=== PATIENT | female | born 1975 | race Caucasian/White ===

== ENCOUNTER 2020-07-15 09:25 | Outpatient (REF) | payer MEDICAID, SELFPAY ==
[2020-07-15 11:52] LABS: Anion Gap 12 (12-20); Blood Urea Nitrogen 12 mg/dL (9-16); Calcium 8.8 mg/dL (8.4-10.2); Carbon Dioxide 24 mmol/L (22-29); Chloride 107 mmol/L (96-108); Cholesterol 273 mg/dL; Estimated Glomerular Filt Rate > 60; Glucose Fasting 78 mg/dL (60-99); HDL Cholesterol 43 mg/dL; LDL Cholesterol Calculated 198 mg/dl; Potassium 3.5 mmol/l (3.3-5.1); Sodium 139 mmol/L (135-145); Triglycerides 163 mg/dL
[2020-07-15 11:57] LABS: Alanine Aminotransferase 9 U/L (0-31); Albumin Level 3.9 g/dL (3.5-5.0); Alkaline Phosphatase 61 U/L (39-117); Aspartate Amino Transferase 12 U/L (5-31); Bilirubin Direct < 0.2 mg/dL (0.0-0.5); Bilirubin Total 0.4 mg/dL (0.0-1.0); Cholesterol 270 mg/dL; HDL Cholesterol 43 mg/dL; LDL Cholesterol Calculated 195 mg/dl; Total Protein 6.6 g/dL (6.5-8.0); Triglycerides 161 mg/dL
== END 2020-07-15 09:26 | disposition home or self-care (01) ==
LOC: HO.HMGCLDS 09:25
PROVIDERS: PCP Internal Medicine; Visit Provider Internal Medicine
DX: E78.9 Disorder of lipoprotein metabolism, unspecified (principal); G25.81 Restless legs syndrome; G43.109 Migraine with aura, not intractable, without status migrainosus; G44.89 Other headache syndrome
CPT/HCPCS: 36415; 80048; 80061; 80076

== ENCOUNTER 2020-10-13 01:16 | Emergency (ER) | payer MEDICAID, SELFPAY ==
[2020-10-13 01:21] VITALS: BP 143/78; PULSE 108; RESP 16; TEMP 36.4; O2SAT 98; BMI 27.4
[2020-10-13 01:38] VITALS: BP 143/78; PULSE 108; RESP 16; TEMP 36.4; O2SAT 98
--- NOTE | 2020-10-13 01:40 | ED.PSYCH ---
HPI - Psych General Chief Complaint: Psychiatric Symptoms Stated Complaint: crisis/SI Time Seen by Provider: 10/13/20 01:37 Source: patient Mode of arrival: EMS History of Present Illness HPI Narrative: 44-year-old female brought in by EMS after boyfriend stated that patient posted a fair will note online prompting him to call EMS. Patient adamantly denies having any suicidal ideation and states that she has not posted anything online. In addition, she denies any history of depression, suicidal ideation, suicide attempt or admissions for these conditions. Otherwise, patient has no acute complaints other than wanting to go home. Related Data Previous Rx's Medication Instructions Recorded simvastatin 40 mg tablet 40 mg PO BEDTIME 90 Days #90 tab 07/17/20 ropinirole 1 mg tablet 1 mg PO BEDTIME #90 tab 09/12/20 Allergies Allergy/AdvReac Type Severity Reaction Status Date / Time acetaminophen [Percocet] Allergy Unknown unknown Verified 07/16/20 13:36 oxycodone Allergy Unknown unknown Verified 07/16/20 13:36 Review of Systems Review of Systems: Pertinent positives and negatives as stated in HPI 10 point review of systems is otherwise negative. PMFSH Past Medical History Source: nursing notes reviewed Medical History Lipid disorder Migraine headache with aura Restless leg syndrome Surgical History No pertinent past surgical history Social History Social History Advance Directives: No Physical Exam Vital Signs: Vital Signs: Last Vital Signs Temp 97.6 F 10/13/20 01:38 Pulse 108 H 10/13/20 01:38 Resp 16 10/13/20 01:38 BP 143/78 H 10/13/20 01:38 Pulse Ox 98 10/13/20 01:38 Body Mass Index 27.4 VITAL SIGNS: Reviewed. GENERAL: Well developed, well nourished, mild distress. HEAD: Normocephalic/atraumatic, EYES: PERRLA, EOMI OROPHARYNX: no oral lesions noted, posterior pharynx clear NECK: Supple, no adenopathy LUNGS: Normal breath sounds. SpO2<98> CARDIOVASCULAR: Regular rate and rhythm without noted murmurs ABDOMEN: Soft, non-tender, non-distended with bowel sounds.. NEUROLOGIC: Alert and oriented x 4. PSYCH: Tearful, normal affect, logical thought process Course Course Course Narrative: This is a 44-year-old female with history and clinical presentation suggestive of possible misinterpretation of circumstances. Patient exhibits logical thought process and does not appear to be depressed at baseline and currently denying any SI/HI. She is otherwise medically cleared for further evaluation by the CARE team/behavioral team. MDM - Psych Lab Data Labs: Lab Results 10/13/20 10/13/20 10/13/20 Range/Units 01:47 01:47 01:47 Urine Color YELLOW Urine Appearance CLEAR Urine pH 6.0 (5.0-8.0) Ur Specific [place] >= 1.030 H (1.005-1.025) Urine Protein NEG (NEG-TRACE) MG/DL Urine Glucose (UA) NEG (NEG) MG/DL Urine Ketones NEG (NEG) MG/DL Urine Blood 2+ H (NEG) Urine Nitrite NEG (NEG) Ur Leukocyte Esterase NEG (NEG) Urine RBC 1-4 (0) /HPF Urine WBC 10-14 H (0-4) /HPF Ur Squamous Epith Cells TRACE /LPF Urine Bacteria NONE /LPF Urine Mucus 2+ /LPF Urine Test NEGATIVE (NEGATIVE) Urine Opiates Screen Not Detected (Not Detect) Ur Barbiturates Screen Not Detected (Not Detect) Ur Phencyclidine Scrn Not Detected (Not Detect) Ur Amphetamines Screen Not Detected (Not Detect) U Benzodiazepines Scrn Not Detected (Not Detect) Urine Cocaine Screen Not Detected (Not Detect) U Marijuana (THC) Screen Not Detected (Not Detect) COVID-19 (DU) (Negative) COVID-19 Clin Com 10/13/20 Range/Units 01:47 Urine Color Urine Appearance Urine pH (5.0-8.0) Ur Specific [place] (1.005-1.025) Urine Protein (NEG-TRACE) MG/DL Urine Glucose (UA) (NEG) MG/DL Urine Ketones (NEG) MG/DL Urine Blood (NEG) Urine Nitrite (NEG) Ur Leukocyte Esterase (NEG) Urine RBC (0) /HPF Urine WBC (0-4) /HPF Ur Squamous Epith Cells /LPF Urine Bacteria /LPF Urine Mucus /LPF Urine Test (NEGATIVE) Urine Opiates Screen (Not Detect) Ur Barbiturates Screen (Not Detect) Ur Phencyclidine Scrn (Not Detect) Ur Amphetamines Screen (Not Detect) U Benzodiazepines Scrn (Not Detect) Urine Cocaine Screen (Not Detect) U Marijuana (THC) Screen (Not Detect) COVID-19 (DU) Negative (Negative) COVID-19 Clin Com See Note Discharge Plan Discharge Prescriptions: No Action ropinirole 1 mg tablet 1 mg PO BEDTIME Qty: 90 RF: 1 simvastatin 40 mg tablet 40 mg PO BEDTIME 90 Days Qty: 90 RF: 1
[2020-10-13 02:15] LABS: Glucose Urine UA NEG (NEG); Leukocyte Esterase Urine NEG (NEG); Nitrite Urine NEG (NEG); Specific Gravity - Urine >= 1.030 (1.005-1.025); Urine Blood 2+ (NEG); Urine Ketones NEG (NEG); Urine Protein NEG (NEG-TRACE)
[2020-10-13 02:22] LABS: Appearance Urine CLEAR; Color Urine YELLOW
[2020-10-13 02:24] LABS: COVID-19 Test Negative (Negative)
[2020-10-13 02:25] LABS: Amphetamine Screen Urine Not Detected (Not Detect); Barbiturates, Urine Not Detected (Not Detect); Benzodiazepines Screen Urine Not Detected (Not Detect); Cannabinoid Screen Urine Not Detected (Not Detect); Cocaine Screen Urine Not Detected (Not Detect); Opiate Screen Urine Not Detected (Not Detect); Phencyclidine Screen Urine Not Detected (Not Detect)
[2020-10-13 02:59] LABS: UACC CULT YES
[2020-10-13 03:00] LABS: Mucus Urine 2+ /LPF; Squamous Epithelial Cell Urine TRACE /LPF; UPreg QC Valid YES; Urine Pregnancy NEGATIVE (NEGATIVE)
--- NOTE | 2020-10-13 07:37 | PC.NURSE ---
Report received from KIRAN Murphy. Pt awake, states she is very angry, tearful- reports that she was told by police that ED evaluation would take '2 hours.' Pt denies SI currently, states 'I said something stupid' but that she plans to go to work tomorrow. Discussed crisis process w/ pt.
--- NOTE | 2020-10-13 08:55 | PC.NURSE ---
Patient resting in bed. Calm and cooperative.
[2020-10-13 09:17] VITALS: BP 148/89; PULSE 82; RESP 17; TEMP 36.5; O2SAT 100
--- NOTE | 2020-10-13 10:42 | PC.NURSE ---
Patient resting in bed. No complaints offered at this time.
--- NOTE | 2020-10-13 10:45 | PC.NURSE ---
Pt resting, resp unlabored. Pt seen by CARE team and by provider.
--- NOTE | 2020-10-13 11:12 | PC.NURSE ---
Pt given discharge instructions, verbalized understanding. Pt continues to deny SI, states she is safe to be discharged. Denies any concerns. Will call taxi for transportation.
--- NOTE | 2020-10-13 12:10 | MHC.CARE ---
CARE team was requested to see pt per POD this am after speaking with pts provider. Pt was referred to [facility] last night due to suspected SI upon EMS arrival and due to [facility] staffing was not seen on overnight and per POD nurse Senait not able to send staff until 12n or after . CARE met w pt for screening based on pt and nurses request. Pt presented was awake, alert, orientedx4. Pt sat up in bed and with irritable tone asked to be discharged. Pt stated how she feels this was all wrong and against my will . Pt admitted to having argument the night prior with her BF of 4 months who was the reason police and EMS responded to pt and asked her to come to [facility]. Pt reported that she went out for a drink with a friend (who is male) which upset her BF and triggered the series of events that lead to her arrival. Pt stated the two argued and she made made statements in anger towards him and how he treats her overall. When asked why pts BF told police she was suicidal she feels he misused what she said. She admitted to taking a video of herself in her recant,for purposes of showing him where she was located and that she went to the [place] in order to get some space. Pt reported that she had spoken to her 19yro daughter 5 mins prior to the police arrival and she never said she was suicidal or depressed and never felt like ending her life at any point. She stated that her BF used this as a means to hurt her for being out with a male. Pt stated the police showed up and asked her to come to [facility] and she willing came thinking it would only be brief. Pt continues to deny suicidal ideation then and now. Pt denied prior SI hx or mental health dx or sxs. Pt is not taking medications aside from cholesterol meds. Pts plan is to return home and go back to work tomorrow. 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 Pt became tearful throughout this brief interview as she was feeling frustrated that she is in this situation when it should have never happened . Pt said she has friends and family who will support her if needed and she is aware of how to seek crisis if needed. Pt will see ED provider for final dispo.
== END 2020-10-13 11:14 | disposition home or self-care (01) ==
PROVIDERS: Emergency Provider Student in an Organized Health Care Education/Training Program; PCP Internal Medicine
DX: F32.9 Major depressive disorder, single episode, unspecified (principal); R45.851 Suicidal ideations; Z91.5 Personal history of self-harm; Z20.822 Contact with and (suspected) exposure to COVID-19; E78.5 Hyperlipidemia, unspecified
CPT/HCPCS: 36415; 80307; 81001; 81025; 87086; 87635; 99284; 99285

== ENCOUNTER 2020-10-14 11:38 | Outpatient (REF) | payer MEDICAID, SELFPAY ==
[2020-10-14 15:00] LABS: Alanine Aminotransferase 11 U/L (0-31); Albumin Level 4.1 g/dL (3.5-5.0); Alkaline Phosphatase 65 U/L (39-117); Aspartate Amino Transferase 14 U/L (5-31); Bilirubin Direct 0.2 mg/dL (0.0-0.5); Bilirubin Total 0.5 mg/dL (0.0-1.0); Cholesterol 181 mg/dL; HDL Cholesterol 49 mg/dL; LDL Cholesterol Calculated 111 mg/dl; Total Protein 6.9 g/dL (6.5-8.0); Triglycerides 108 mg/dL
== END 2020-10-14 11:39 | disposition home or self-care (01) ==
LOC: HO.HMGCLDS 11:38
PROVIDERS: PCP Internal Medicine; Visit Provider Internal Medicine
DX: E78.9 Disorder of lipoprotein metabolism, unspecified (principal)
CPT/HCPCS: 36415; 80061; 80076

== ENCOUNTER 2021-04-05 12:37 | Outpatient (REF) | payer MEDICAID, SELFPAY ==
--- NOTE | ~2021-04-05 | XR_ITS ---
EXAMINATION: XR KNEE, RIGHT CLINICAL INFORMATION: Right knee pain COMPARISON: None TECHNIQUE: Two views of the right knee. FINDINGS: Bones and soft tissues are normal. No fracture or joint effusion. Alignment is anatomic. Joint spaces are well maintained. No abnormal soft tissue calcification. XR/XR knee RT 2V IMPRESSION: Normal right knee.
--- NOTE | ~2021-04-05 | XR_ITS ---
EXAMINATION: XR LUMBOSACRAL SPINE CLINICAL INFORMATION: Pain COMPARISON: None TECHNIQUE: Three views of the lumbosacral spine. FINDINGS: There is grade 1 anterolisthesis at L5-S1. The vertebral body heights and intervertebral disc spaces are maintained. There is bilateral spondylolysis at L5. The paravertebral soft tissues are unremarkable. XR/XR lumbar spine 2-3V IMPRESSION: Bilateral spondylolysis at L5 with grade 1 anterolisthesis at L5-L1.
[2021-04-05 13:50] LABS: Alanine Aminotransferase 11 U/L (0-31); Alkaline Phosphatase 56 U/L (39-117); Anion Gap 10 (12-20); Aspartate Amino Transferase 14 U/L (5-31); Bilirubin Direct 0.2 mg/dL (0.0-0.5); Bilirubin Total 0.2 mg/dL (0.0-1.0); Blood Urea Nitrogen 10 mg/dL (9-16); Calcium 9.3 mg/dL (8.4-10.2); Carbon Dioxide 24 mmol/L (22-29); Chloride 109 mmol/L (96-108); Cholesterol 157 mg/dL; Estimated Glomerular Filt Rate > 60; Glucose Random 86 mg/dL (60-115); HDL Cholesterol 46 mg/dL; LDL Cholesterol Calculated 92 mg/dl; Potassium 4.3 mmol/L (3.3-5.1); Sodium 139 mmol/L (135-145); Total Protein 6.5 g/dL (6.5-8.0); Triglycerides 99 mg/dL
== END 2021-04-05 12:38 | disposition home or self-care (01) ==
LOC: HO.HMGCX 12:37
PROVIDERS: PCP Internal Medicine; Visit Provider Internal Medicine
DX: E78.9 Disorder of lipoprotein metabolism, unspecified (principal); G43.109 Migraine with aura, not intractable, without status migrainosus; G25.81 Restless legs syndrome; M25.561 Pain in right knee; M54.50 Low back pain, unspecified; M43.06 Spondylolysis, lumbar region
CPT/HCPCS: 36415; 72100; 73560; 80053; 80061; 82248

== ENCOUNTER → 2021-04-08 14:49 | Outpatient (BNVA) | payer MEDICAID, SELFPAY | PROVIDERS: PCP Internal Medicine; Visit Provider Nurse Practitioner Family | DX: M47.816 Spondylosis without myelopathy or radiculopathy, lumbar region (principal); M25.561 Pain in right knee | CPT/HCPCS: 99202 ==

== ENCOUNTER 2021-05-20 18:49 | Outpatient (REF) | payer OTHER, SELFPAY ==
--- NOTE | ~2021-05-20 | MR_ITS ---
EXAMINATION: MR LUMBAR SPINE WITHOUT CONTRAST CLINICAL INFORMATION: Spondylosis without myelopathy or radiculopathy. COMPARISON: None TECHNIQUE: MRI of the lumbar spine was obtained using routine sequences without contrast. FINDINGS: There is mild grade 1 anterolisthesis of L5 on S1 related to defects of the bilateral L5 pars interarticularis. There is mild retrolisthesis of L4 on L5. No significant disc height loss is seen. There is mild marrow edema at the anterior superior corner of L5. The distal spinal cord appears normal. The conus medullaris terminates normally at the L1 level. The visualized paraspinal muscles and intra-abdominal and pelvic contents are within normal limits. SPINAL LEVELS: L1-L2: No posterior disc abnormality. No spinal canal or neural foraminal stenosis. L2-L3: No posterior disc abnormality. No spinal canal or neural foraminal stenosis. L3-L4: No posterior disc abnormality. No spinal canal or neural foraminal stenosis. L4-L5: Disc bulging with shallow central protrusion and mild facet arthropathy. No spinal canal or neural foraminal stenosis. L5-S1: Grade 1 anterolisthesis related to pars defects. Disc bulging with facet arthropathy. Significant neural foraminal stenosis with compression of the bilateral exiting L5 nerve root. MR/MR lumbar spine wo con IMPRESSION: At L5-S1 there is grade 1 anterolisthesis related to bilateral L5 pars defects. Significant neural foraminal stenosis with compression of the exiting L5 nerve roots. At L4-L5 there is shallow central protrusion but no spinal canal or neural foraminal stenosis.
== END 2021-05-20 18:50 | disposition home or self-care (01) ==
LOC: HO.MRI 18:49
PROVIDERS: Visit Provider Nurse Practitioner Family
DX: M47.816 Spondylosis without myelopathy or radiculopathy, lumbar region (principal); M43.17 Spondylolisthesis, lumbosacral region
CPT/HCPCS: 72148

== ENCOUNTER → 2021-06-10 11:15 | Outpatient (BNVA) | payer OTHER, SELFPAY | PROVIDERS: PCP Internal Medicine; Visit Provider Nurse Practitioner Family ==

== ENCOUNTER 2021-06-24 16:50 | Outpatient (REF) | payer OTHER, SELFPAY ==
--- NOTE | ~2021-06-24 | XR_ITS ---
EXAMINATION: CR LUMBOSACRAL SPINE WITH OBLIQUES CLINICAL INFORMATION: Spondylolisthesis, lumbosacral region. COMPARISON: Lumbar spine films dated 04/05/2021. MRI scan of the lumbar spine dated 05/20/2021. TECHNIQUE: AP and lateral views of the lumbar spine. Lateral view of the lumbosacral junction. Lateral flexion-extension views of the lumbar spine. FINDINGS: Bilateral pars defects are seen at L5 with grade 1 anterolisthesis of L5 on S1, similar to the previous exam. Visualization is mildly limited due to overlapping structures and slight obliquity on the images. Upon flexion and extension, no significant instability is appreciated. Alignment of the lumbar spine otherwise unremarkable. Disc space height well maintained at all levels. Sacroiliac joints intact and unremarkable. XR/XR lumbar spine 6V w bending IMPRESSION: Bilateral L5 pars defects and associated Grade 1 anterolisthesis of L5 on S1 are similar to prior studies. No significant instability appreciated on flexion and extension, though evaluation is mildly limited.
== END 2021-06-24 16:51 | disposition home or self-care (01) ==
LOC: HO.XRAY 16:50
PROVIDERS: Visit Provider Nurse Practitioner Family
DX: M43.17 Spondylolisthesis, lumbosacral region (principal)
CPT/HCPCS: 72114

== ENCOUNTER 2021-08-26 06:08 | Outpatient (REF) | payer OTHER, SELFPAY ==
--- NOTE | ~2021-08-26 | FL_ITS ---
EXAMINATION: XR FLUOROSCOPY WITH IMAGES CLINICAL INFORMATION: M43.06 - Spondylolysis, lumbar region COMPARISON: Radiographs lumbar spine 06/24/2021 TECHNIQUE: Fluoroscopy performed by Dr. Mahesh Ballard. Fluoroscopy time: 0.6 minutes DAP: 6.59 Gycm2 Images: 2 FINDINGS: There are spinal needles overlying the bilateral outer L5 neural foramen. There is contrast seen in the respective nerve sheaths. Transforaminal epidural extension is present. No visible vascular communication. FL/FL guidance in treatment room IMPRESSION: Fluoroscopy for pain management procedures.
== END 2021-08-26 06:09 | disposition home or self-care (01) ==
LOC: HO.RADIR 06:08
PROVIDERS: Visit Provider Anesthesiology
DX: M43.06 Spondylolysis, lumbar region (principal); G25.81 Restless legs syndrome; E78.9 Disorder of lipoprotein metabolism, unspecified; F17.200 Nicotine dependence, unspecified, uncomplicated; Z88.6 Allergy status to analgesic agent
CPT/HCPCS: 64483; J3300; Q9967

== ENCOUNTER → 2021-09-30 12:50 | Outpatient (BNVA) | payer OTHER, SELFPAY | PROVIDERS: PCP Internal Medicine; Visit Provider Nurse Practitioner Family | DX: M43.06 Spondylolysis, lumbar region (principal); M47.816 Spondylosis without myelopathy or radiculopathy, lumbar region | CPT/HCPCS: 99212 ==

== ENCOUNTER 2021-10-06 15:06 | Outpatient (REF) | payer OTHER, SELFPAY ==
--- NOTE | 2021-10-06 16:04 | MHC.AU.ANR ---
Adult Audiological Evaluation Date of Visit: 10/06/21 Reason for Appointment: Audiological evaluation due to concern for decreased hearing. Yoly notes that her ears feel blocked and she is often asking people for repetition. She notes that her right ear is worse than her left. She feels her hearing has gradually been decreasing over the past couple years. She notes ringing and clicking sounds in her ears. Does patient feel they have a hearing loss?: Yes If Yes, Which Ear?: Right Ear When Was Hearing Difficulty First Noticed?: Couple years ago Has hearing been tested previously?: No Hearing Handicap Inventory: HHIE SCORE: 16 Based on HHIE score, patient has: Mild to moderate perceived hearing handicap Ear History: Family History of Hearing Loss?: Yes: grandmother Ear Infections in Childhood: Both Ears Bothersome Tinnitus/Ringing/Noises in Ears: Both Ears Blocked/Full Sensation in Ear(s): Both Ears Medical History: Medical History: Tobacco Use Medical History (Other): Seasonal allergies, injections in back for a fracture (08/26/21) Allergies: Oxycodone Medication List: Simvastatin, Ropinirole Otoscopy: Right Ear: Fluid behind tympanic membrane Left Ear: Tympanic membrane is retracted Tympanometry: Tympanometry performed due to: To assess integrity of the middle ear system Right Ear: Non-compliant Middle Ear System (Type B) Left Ear: Negative Middle Ear Pressure (Type C) Hearing Evaluation: Transducer(s) Used: Insert Earphones, Bone Conduction Method: Conventional Audiometry Stimuli Used: Pure Tones Right Ear: Description of Hearing: Mild conductive hearing loss from 250-500 Hz, rising to normal hearing (with a conductive overlay, 15-25 dBHL air-bone gaps) from 3960-9913 Hz, sloping to a mild conductive hearing loss from 1069-5869 Hz, and a moderately-severe hearing loss at 8000 Hz. Left Ear: Description of Hearing: Normal hearing from 250-6000 Hz (with a conductive overlay, 20 dBHL air-bone gaps from 7381-3532 Hz), sloping to a moderate hearing loss at 8000 Hz. Speech Recognition Threshold (SRT): Method Used: Monitored Live Voice Stimuli Used: Spondee Words Right Ear: 25 dBHL Left Ear: 20 dBHL Word Discrimination: Method: Recorded Lists Word Lists Used: NU-6 Right Ear: 88% at 65 dBHL Left Ear: 96% at 60 dBHL Recommendations: Audiological re-evaluation in one year. Recommend a referral to Ear, Nose, and Throat to address middle ear dysfunction and conductive hearing loss. Diagnosis: Primary Diagnosis: H90.0 Conductive Hearing Loss, Bilateral Secondary Diagnosis: H69.93 Unspecified Eustachian Tube Dysfunction, Bilateral Services Performed: Services Performed: Comprehensive Audiological Evaluation (CPT 76751) Tympanometry (CPT 27145) Signature: Provider: Kaia Reyes, CCC-A
== END 2021-10-06 15:07 | disposition home or self-care (01) ==
LOC: HO.SH 15:06
PROVIDERS: Visit Provider Internal Medicine
DX: H91.91 Unspecified hearing loss, right ear (principal)
CPT/HCPCS: 92557; 92567

== ENCOUNTER 2022-12-03 11:26 | Outpatient (REF) | payer OTHER, SELFPAY ==
[2022-12-05 22:33] LABS: TS Negative Control Passed; TS Panel A 0; TS Panel B 0; TS Positive Control Passed; TSpotTB Negative (Negative)
[2022-12-07 20:49] LABS: Rubella IgG Antibody 2.25 Index
== END 2022-12-03 11:27 | disposition home or self-care (01) ==
LOC: HO.HMGCLDS 11:26
PROVIDERS: PCP Internal Medicine; Visit Provider Internal Medicine
DX: Z11.1 Encounter for screening for respiratory tuberculosis (principal); Z78.9 Other specified health status
CPT/HCPCS: 36415; 86481; 86735; 86762; 86765; 86787

== ENCOUNTER 2023-02-05 08:27 | Outpatient (AMB) | payer OTHER, SELFPAY ==
--- NOTE | 2023-02-05 08:28 | A.OFFPC_ITS ---
Vital Signs 02/05/23 08:30 Height 5 ft 2 in Weight 198 lb 2 oz BMI 36.2 BP 108/68 Blood Pressure Location Rt brachial Position Sitting Pulse 93 Pulse Source Pulse Oximeter Pulse Oximetry (%) 99 Oxygen Delivery Method Room Air Intake Visit Reasons: Annual PE Allergies oxycodone Allergy (Unknown, Verified 02/05/23 08:31) unknown Medication List - Last Reconciled 02/05/23 by Abby Funes MD loratadine 10 mg PO DAILY Tobacco use date assessed: 02/05/23 Dental Screening Dental Screen Date: 02/05/23 Did you have a dental visit in the last 12 months?: No Did you have a dental problem in the last 6 months where you did not have access to dental care?: No Was dental information given to patient?: No HPI Annual PE HPI Details Patient is 47-year-old female came in today for physical exam 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 Due for Pap smear referral placed Due for mammogram order placed Lab order placed to be done fasting BMI is elevated need to lose weight. [facility] Medical History Lipid disorder Migraine headache with aura Restless leg syndrome Surgical History No pertinent past surgical history Social History Housing: House Patient Tobacco Use Status: Current everyday Tobacco user Cigarette Packs Per Day: 0.5 Cigarettes Per Day: 10 e-Cigarette/Vaping Use: Never Used service: No Current occupational status: employed Current occupational exposures/hazards: No Cognitive needs: No Hearing needs: No Vision needs: No Questionnaire PHQ-9 Over the last 2 weeks, how often have you been bothered by any of the following problems? 1. Little interest or pleasure in doing things: several days 2. Feeling down, depressed, or hopeless: not at all 3. Trouble falling or staying asleep, or sleeping too much: several days 4. Feeling tired or having little energy: several days 5. Poor appetite or overeating: several days 6. Feeling bad about yourself - or that you are a failure or have let yourself or your family down: not at all 7. Trouble concentrating on things, such as reading the newspaper or watching television: not at all 8. Moving or speaking so slowly that other people could have noticed. Or the opposite - being so fidgety or restless that you have been moving around a lot more than usual: not at all 9. Thoughts that you would be better off or of hurting yourself in some w ay: not at all Total score: 4 Depression Screening Interpretation: Negative 25465 - PHQ-9 Billing: Yes Source: Developed by Drs. Juan Phillips, Marleni Brown, Cabrera Martin and colleagues, with an educational ponce from [employer]. Thrive Questionnaire Date Thrive assessed: 02/05/23 I am a: Patient What is your living situation today?: I have a steady place to live Within the past 12 months, did the food you bought not last and you didn't have the money to get more?: Never true Within the past 12 months, did you worry whether your food would run out before you got money to buy more?: Never true Do you have trouble paying for medicines?: No Do you have trouble getting transportation to medical appointments?: No Do you have trouble paying your heating and electricity bill?: No Do you have trouble taking care of your child, family member or friend?: No Do you have trouble with day-to-day activities such as bathing, preparing meals, shopping, managing finances, etc.?: No Are you currently unemployed and looking for a job?: No Are you interested in more education?: No AUDIT C Alcohol Use Questionnaire (AUDIT-C) 1. How often do you have a drink containing alcohol?: 2-4 times a month 2. How many drinks containing alcohol do you have on a typical day when you are drinking?: 1 or 2 3. How often do you have six or more drinks on one occasion?: Never Total Score: 2 Score Reviewed/Action Taken: Yes ALLAN-7 AMB Questionnaire ALLAN-7 Date ALLAN - 7 assessed: 02/05/23 Feeling nervous, anxious, or on edge: 0 = Not at all Not being able to stop or control worryin = Not at all Worrying too much about different things: 0 = Not at all Trouble relaxin = Not at all Being so restless that it is hard to sit still: 0 = Not at all Becoming easily annoyed or irritable: 0 = Not at all Feeling afraid as if something awful might happen: 0 = Not at all Total ALLAN-7 score (0-4 normal; 5-9 mild; 10-14 moderate; 15-21 severe): 0 Source: Developed by Drs. Juan Phillips, Marleni Brown, Cabrera Martin and colleagues, with an educational ponce from [employer]. ALLAN-7 Assessment Billing ALLAN-7 Assessment Tool: ALLAN-7 Assessment 42083 Review of Systems Const Denies chills, Denies fever(s) and Denies headache(s) Eyes Denies blurry vision ENT Denies headache(s), Denies nasal discharge, Denies nasal obstruction, Denies odynophagia and Denies sinus pain Card Denies chest pain at rest and Denies chest pain with activity Resp Denies cough and Denies hemoptysis GI Denies diarrhea, Denies odynophagia, Denies vomiting and Denies hematemesis Reports as per HPI Musc Denies abnormal gait Skin/Breast Reports as per HPI Neuro Denies Neuro-related abnormal movements, Denies Abnormal speech present, Denies abnormal gait, Denies headache(s) and Denies Sensory deficit (Neuro) Psych Denies mood swings and Denies paranoia Endo Reports as per HPI Garth/Lymph Reports as per HPI Aller/Immun Reports as per HPI Physical exam (Primary Care) Vital Signs: Last Vital Signs Pulse 93 02/05/23 08:30 BP 108/68 02/05/23 08:30 Pulse Ox 99 02/05/23 08:30 Oxygen Delivery Method Room Air 02/05/23 08:30 BMI result Body Mass Index 36.2 Tobacco/Smoking Status: Tobacco use Status Tobacco use date assessed 02/05/23 02/05/23 08:33 Patient Tobacco Use Status Current everyday Tobacco 02/05/23 08:30 e-Cigarette/Vaping Use Never Used 02/05/23 08:30 PHQ-9: PHQ-9 Score PHQ-9: Total score 4 02/05/23 09:03 Depression Screening Interpretation: Negative Thrive Assessment: Date of Thrive Assessment Date Thrive assessed 02/05/23 02/05/23 09:00 Const General: cooperative, comfortable and no acute distress Orientation/consciousness: patient oriented x3 HENMT Head: Yes normocephalic and Yes atraumatic Eyes General: appearance normal, both eyes and all related structures Pupils: Equal, round and reactive pupils present EOM: EOMs intact bilaterally Neck Neck: Yes supple and No lymphadenopathy Thyroid: Thyroid normal Lymphatic: no lymphadenopathy noted Chest Breast/axilla palpation: normal palpation of the breasts Resp Effort & Inspection: normal respiratory effort and able to speak in complete sentences Auscultation: clear to auscultation bilaterally Cardio Heart sounds: S1 normal heart sound present and S2 normal heart sound present GI Palpation (GI): Soft to palpation and nontender Auscultation: normal bowel sounds General: Yes no CVA tenderness Back/Spine/Pelvis Back: no CVA tenderness Skin General skin exam: elasticity normal and turgor normal Neuro General: patient oriented x3 and gait normal Cranial nerves: Yes Equal, round and reactive pupils present Speech: No Abnormal speech present Sensory Exam: No Sensory deficit (Neuro) Coordination: tandem gait normal and Romberg test negative Extrem General: Yes normal exam except as noted and No edema Assessment and Plan Assessment & Plan (1) Encounter for general adult medical examination with abnormal findings: Code(s): Z00.01 - Encounter for general adult medical examination with abnormal findings (2) Lumbar pain: Code(s): M54.5 - Low back pain (3) Lipid disorder: Code(s): E78.9 - Disorder of lipoprotein metabolism, unspecified (4) Migraine headache with aura: Code(s): G43.109 - Migraine with aura, not intractable, without status migrainosus Qualifiers: Intractability: not intractable Status migrainosus presence: without status migrainosus Qualified Code(s): G43.109 - Migraine with aura, not intractable, without status migrainosus (5) Obesity due to excess calories: Code(s): E66.09 - Other obesity due to excess calories Plan Patient is 47-year-old female came in today for physical exam 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 Due for Pap smear referral placed Due for mammogram order placed Lab order placed to be done fasting BMI is elevated need to lose weight. Orders: Orders Comprehensive Filley. Panel Fast Today E66.09 - Other obesity due to excess calories, E78.9 - Disorder of lipoprotein metabolism, unspecified, G43.109 - Migraine with aura, not intractable, without status migrainosus, M54.5 - Low back pain, Z00.01 - Encounter for general adult medical examination with abnormal findings Lipid Panel Today E66.09 - Other obesity due to excess calories, E78.9 - Disorder of lipoprotein metabolism, unspecified, G43.109 - Migraine with aura, not intractable, without status migrainosus, M54.5 - Low back pain, Z00.01 - Encounter for general adult medical examination with abnormal findings TSH reflex Free T4 Today E66.09 - Other obesity due to excess calories, E78.9 - Disorder of lipoprotein metabolism, unspecified, G43.109 - Migraine with aura, not intractable, without status migrainosus, M54.5 - Low back pain, Z00.01 - Encounter for general adult medical examination with abnormal findings Vitamin D 25-OH (D2 and D3) Today E66.09 - Other obesity due to excess calories, E78.9 - Disorder of lipoprotein metabolism, unspecified, G43.109 - Migraine with aura, not intractable, without status migrainosus, M54.5 - Low back pain, Z00.01 - Encounter for general adult medical examination with abnormal findings Complete Blood Count Auto Diff Today E66.09 - Other obesity due to excess calories, E78.9 - Disorder of lipoprotein metabolism, unspecified, G43.109 - Migraine with aura, not intractable, without status migrainosus, M54.5 - Low back pain, Z00.01 - Encounter for general adult medical examination with abnormal findings MM tomosynthesis screening BI Today Z12.31 - Encounter for screening mammogram for malignant neoplasm of breast Referrals [employer] Referral Z01.419 - Encounter for gynecological examination (general) (routine) without abnormal findings Coding Level of Care Code Est Pt Prev Care 40-64y(58143) Diagnoses Encounter for general adult medical examination with abnormal findings Z00.01 Lumbar pain M54.5 Lipid disorder E78.9 Migraine headache with aura G43.109 Intractability: not intractable Status migrainosus presence: without status migrainosus Obesity due to excess calories E66.09 Additional Codes ALLAN-7 Assessment Billing - ALLAN-7 Assessment Tool: ALLAN-7 Assessment 27459 ([id number])
[2023-02-05 08:30] VITALS: BP 108/68; PULSE 93; O2SAT 99; BMI 36.2
== END 2023-02-05 09:28 | disposition home or self-care (01) ==
PROVIDERS: Visit Provider Internal Medicine
DX: Z00.01 Encounter for general adult medical examination with abnormal findings (principal); M54.50 Low back pain, unspecified; E78.9 Disorder of lipoprotein metabolism, unspecified; G43.109 Migraine with aura, not intractable, without status migrainosus; E66.09 Other obesity due to excess calories
CPT/HCPCS: 99396

== ENCOUNTER 2023-02-05 09:06 | Outpatient (REF) | payer OTHER, SELFPAY ==
[2023-02-05 11:23] LABS: MANUAL DIFF FLAG NO
[2023-02-05 11:44] LABS: Basophils Percent Auto 0.4 % (0-2); Eosinophils Absolute Auto 0.4 X10*3/uL (0.0-0.4); Hemoglobin 13.4 g/dl (12.0-16.0); Imm Gran Abs Auto 0.03 X10*3/uL (0.00-0.03); Imm Gran Pct Auto 0.4 % (0.0-0.4); Lymphocytes Absolute Auto 1.8 X10*3/uL (1.2-4.9); Lymphocytes Percent Auto 24.3 % (20-40); Mean Corpuscular HGB Conc 32.7 g/dl (31.0-35.0); Mean Corpuscular Hemoglobin 30.8 pg (27.0-33.0); Mean Corpuscular Volume 94.3 fL (80.0-98.0); Mean Platelet Volume 10.7 fL (9.4-12.3); Monocytes Absolute Auto 0.5 X10*3/uL (0.1-1.2); Monocytes Percent Auto 6.9 % (2-11); Neutrophils Absolute Auto 4.7 x10*3/uL (2.0-8.3); Platelet Count 231 X10*3/uL (160-400); Red Blood Count 4.35 X10*6/uL (4.20-5.50); Red Cell Distribution Width 12.7 % (11.0-16.0); White Blood Count 7.4 X10*3/uL (4.8-10.8)
[2023-02-05 14:59] LABS: Alanine Aminotransferase 12 U/L (0-31); Alkaline Phosphatase 63 U/L (39-117); Anion Gap 12 (12-20); Aspartate Amino Transferase 12 U/L (5-31); Bilirubin Total 0.4 mg/dL (0.0-1.0); Blood Urea Nitrogen 12 mg/dL (9-16); Calcium 9.2 mg/dL (8.4-10.2); Carbon Dioxide 19 mmol/L (22-29); Chloride 109 mmol/L (96-108); Cholesterol 274 mg/dL; Estimated Glomerular Filt Rate > 60; Glucose Fasting 83 mg/dL (60-99); HDL Cholesterol 41 mg/dL; LDL Cholesterol Calculated 197 mg/dl; Potassium 3.7 mmol/L (3.3-5.1); Sodium 136 mmol/L (135-145); Total Protein 7.2 g/dL (6.5-8.0); Triglycerides 183 mg/dL
[2023-02-05 15:17] LABS: TSH reflex Free T4 1.13 uIU/mL (0.32-4.0)
[2023-02-11 12:58] LABS: Vitamin D 25-OH, D2 <4 ng/mL; Vitamin D 25-OH, D3 31 ng/mL; Vitamin D 25-OH, Total 31 ng/mL (30-100)
== END 2023-02-05 09:07 | disposition home or self-care (01) ==
LOC: HO.HMGCLDS 09:06
PROVIDERS: PCP Internal Medicine; Visit Provider Internal Medicine
DX: Z00.01 Encounter for general adult medical examination with abnormal findings (principal); E66.09 Other obesity due to excess calories; E78.9 Disorder of lipoprotein metabolism, unspecified; G43.109 Migraine with aura, not intractable, without status migrainosus; M54.50 Low back pain, unspecified
CPT/HCPCS: 36415; 80053; 80061; 82306; 84443; 85025

== ENCOUNTER 2023-03-03 08:41 | Outpatient (AMB) | payer OTHER, SELFPAY ==
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
[2023-03-03 08:48] VITALS: BP 126/72; PULSE 74; RESP 16; O2SAT 98; BMI 36.4
== END 2023-03-03 08:52 | disposition home or self-care (01) ==
PROVIDERS: PCP Internal Medicine; Visit Provider Anesthesiology
DX: M47.26 Other spondylosis with radiculopathy, lumbar region (principal); M43.17 Spondylolisthesis, lumbosacral region; M25.551 Pain in right hip; M43.06 Spondylolysis, lumbar region
CPT/HCPCS: 99213

== ENCOUNTER → 2023-03-03 08:41 | Outpatient (BNVA) | payer OTHER, SELFPAY | PROVIDERS: PCP Internal Medicine; Visit Provider Anesthesiology | DX: M54.16 Radiculopathy, lumbar region (principal); M51.36 Other intervertebral disc degeneration, lumbar region; M43.17 Spondylolisthesis, lumbosacral region; M47.816 Spondylosis without myelopathy or radiculopathy, lumbar region | CPT/HCPCS: 99212 ==

== ENCOUNTER 2023-03-04 10:34 | Outpatient (REF) | payer OTHER, SELFPAY | END 2023-03-04 10:35 | disposition home or self-care (01) | LOC: HO.MAMMO 10:34 | PROVIDERS: PCP Internal Medicine; Visit Provider Internal Medicine | DX: Z12.31 Encounter for screening mammogram for malignant neoplasm of breast (principal) | CPT/HCPCS: 77063; 77067 ==

== ENCOUNTER → 2023-03-04 10:45 | Outpatient (BNV) | payer OTHER, SELFPAY | PROVIDERS: PCP Internal Medicine; Visit Provider Radiology Diagnostic Radiology | DX: Z12.31 Encounter for screening mammogram for malignant neoplasm of breast (principal) | CPT/HCPCS: 77063; 77067 ==

== ENCOUNTER 2023-04-05 13:40 | Outpatient (AMB) | payer OTHER, SELFPAY ==
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
[2023-04-05 13:57] VITALS: BP 130/66; PULSE 71; RESP 17; O2SAT 97; BMI 36.8
== END 2023-04-05 14:26 | disposition home or self-care (01) ==
PROVIDERS: PCP Internal Medicine; Visit Provider Anesthesiology
DX: M43.06 Spondylolysis, lumbar region (principal); M43.17 Spondylolisthesis, lumbosacral region; M47.816 Spondylosis without myelopathy or radiculopathy, lumbar region; M25.551 Pain in right hip
CPT/HCPCS: 20552; 99213

== ENCOUNTER → 2023-04-05 13:40 | Outpatient (BNVA) | payer OTHER, SELFPAY | PROVIDERS: PCP Internal Medicine; Visit Provider Anesthesiology | DX: M47.816 Spondylosis without myelopathy or radiculopathy, lumbar region (principal); M43.17 Spondylolisthesis, lumbosacral region; M25.551 Pain in right hip | CPT/HCPCS: 20552; 99212 ==

== ENCOUNTER 2023-05-13 08:16 | Outpatient (REF) | payer OTHER, SELFPAY ==
--- NOTE | 2023-05-13 09:13 | MHC.AU.HA1 ---
Hearing Aid Evaluation Date of Visit: 05/13/23 Historical Information: Description of Hearing: Right Ear: Moderate rising to mild sloping to moderately-severe mixed hearing loss; Left Ear: Within normal through 6 kHz with moderately-severe hearing loss at 8 kHz only Summary: Yoly provided an updated hearing test and medical clearance for her right ear from [facility]. She reported that she had a PE tube placed in her right ear due to persistent middle ear dysfunction. However, with the tube, she had persistent drainage and was prescribed multiple rounds of ear drops and antibiotics without improvement. The PE tube was subsequently removed, she was provided another round of antibiotics, and the drainage finally subsided. The ENT reportedly recommended trying a tube again; however, Yoly did not want to undergo another surgery. She opted to trial a hearing aid instead. Discussed pros/cons of different styles. Yoly opted for a rechargeable ITC for ease of use. She did not want anything behind her ear. She has multiple piercings that may interfere with the fit of an ITC; however, an impression was taken without incident. Discussed option of fitting a RITE with a dome if issues with the fit of the ITC due to the piercings does not work out. Hearing Aid Prescription: Based on the individual?s shared listening needs, communication environments, dexterity, desire for connectivity, and personal preferences, the following prescription for amplification has been made: Right ear: Make, Model, Color: Paulina Thompson AI 16 ITC-R Color: Mamers Battery Size: Rechargeable Accessories/Assistive Technology: Hole Digger Plan of Care: Patient wishes to purchase hearing aids as prescribed Action Taken/Action Needed: Earmold Impression Taken without incident. Hearing Instrument Fitting to be scheduled when materials arrive Primary Diagnosis: H90.A22 SNHL, Unilatearl, Left Ear, W/Restricted Contralateral Hearing Secondary Diagnosis: H90.A31 Mixed HL, Unilateral Right Ear, W/Restricted Contralateral Signature: Provider: Jose Seals, [facility]
== END 2023-05-13 08:17 | disposition home or self-care (01) ==
LOC: HO.HAP 08:16
PROVIDERS: Visit Provider Internal Medicine
DX: Z46.1 Encounter for fitting and adjustment of hearing aid (principal); H90.A22 Sensorineural hearing loss, unilateral, left ear, with restricted hearing on the contralateral side; H90.A31 Mixed conductive and sensorineural hearing loss, unilateral, right ear with restricted hearing on the contralateral side
CPT/HCPCS: 92590; V5275

== ENCOUNTER 2023-06-23 12:57 | Outpatient (REF) | payer OTHER, SELFPAY ==
--- NOTE | 2023-06-23 14:10 | MHC.AU.HA2 ---
Hearing Instrument Fitting- Adult- Binaural Date of Visit: 06/23/23 Hearing Instruments Dispensed: Right Ear: Make, Model, Color, Serial Number: Paulina ARGUELLO 16 ITC-R SN: [id number] Color: Wheeler Dry Boss Repair Warranty: 06/24/2026 Dry Boss Loss and Damage Warranty: 06/24/2026 [facility] Service Plan: 06/23/2024 Battery Size: Rechargeable Type of Wax Guard: HearClear Accessories/Assistive Technology: Paulina Custom Stretching Press Operator SN: [id number] Summary of Fitting: Ran feedback analyzer and real ear measures. Good match to target until about 2 kHz due to limits of feedback curve. Decreased overall volume slightly at Yoly's request due to perceived loudness. Physical fit reportedly comfortable even with piercings. Discussed care, use, and rechargeability including manually turning on/off and changing wax guard. Practiced insertion and removal. Yoly was able to manipulate the hearing aid easily. Explained importance of daily, consistent use. Did not pair to cell phone at this time. Recommendations: A hearing instrument follow-up was scheduled. Diagnosis Code(s): Primary Diagnosis: H90.A22 SNHL, Unilatearl, Left Ear, W/Restricted Contralateral Hearing Secondary Diagnosis: H90.A31 Mixed HL, Unilateral Right Ear, W/Restricted Contralateral Signature: Provider: Jose Seals, [facility]
== END 2023-06-23 12:58 | disposition home or self-care (01) ==
LOC: HO.HAP 12:57
PROVIDERS: Visit Provider Internal Medicine
DX: Z46.1 Encounter for fitting and adjustment of hearing aid (principal); H90.A22 Sensorineural hearing loss, unilateral, left ear, with restricted hearing on the contralateral side; H90.A31 Mixed conductive and sensorineural hearing loss, unilateral, right ear with restricted hearing on the contralateral side
CPT/HCPCS: V5011; V5020; V5241; V5255

== ENCOUNTER 2023-08-25 11:21 | Outpatient (AMB) | payer OTHER, SELFPAY ==
[2023-08-25 11:24] VITALS: BMI 37.9
--- NOTE | 2023-08-25 11:24 | MHC.OFFVIS ---
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 She sees her primary care provider. 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 She is sexually active with her she has had a tubal ligation. She has not worried about any infection it has been well over 10 years since her last Pap smear which was with Dr. uHrtado. She has never had an abnormal 1. She had her mammograms recently. Patient shared at the end of the visit that she has an issue with urinary retention and incomplete voiding and she has to employee various methods to try to empty. She tends to urinate when she needs to these days but she knows that she has not completely emptying. She has been getting hot flashes for few years and also irregular periods for least the last year and she knows then in her family the youngest person who went through menopause was 38 years old so it has not surprising. [facility] Medical History Lipid disorder Migraine headache with aura Restless leg syndrome Surgical History No pertinent past surgical history Family History (Updated 08/25/23 @ 11:33 by FRITZ Littlejohn) Paternal Grandmother Colon cancer Maternal Aunt Breast cancer Social History Housing: House Patient Tobacco Use Status: Current everyday Tobacco user Cigarette Packs Per Day: 0.5 Cigarettes Per Day: 10 e-Cigarette/Vaping Use: Never Used service: No Current occupational status: employed Current occupational exposures/hazards: No Cognitive needs: No Hearing needs: No Vision needs: No Female Reproductive History Menstrual Age of Menarche: 14 Duration of menses: 3-5 days control method: none Total pregnancies: 2 Full term: 2 Number of Living Children: 2 Date of last pap smear: 12/25/09 (negative) Date of Mammogram: 03/04/23 Physical Exam Vital Signs: BMI result Body Mass Index 37.9 Const Other: Skin pallor slightly yellowish circles under eyes patient worked a 23 hour shift last night. General: healthy appearing, comfortable, no acute distress, well developed and alert Nutritional Appearance: average body habitus Orientation/consciousness: patient oriented x3 Limitations: no limitations HEENT Head: Yes normocephalic Neck Neck: Yes normal visual inspection Chest Chest palpation & inspection: normal inspection of the chest Breast/axilla inspection: normal inspection of the breasts and normal inspection of the axillae Breast/axilla palpation: normal palpation of the breasts and normal palpation of the axillae Resp Effort & Inspection: normal respiratory effort GI Inspection: Yes normal to inspection, No Abdominal wall edema and No distended Palpation (GI): Soft to palpation and nontender General: Yes bladder normal to palpation External Female Exam: normal external appearance and normal appearance of the urethra Speculum Exam - Vagina: normal appearance of the vagina, normal palpation and normal vaginal discharge Speculum Exam - Cervix: normal appearance of the cervix, normal palpation and nontender Bimanual exam- vagina & uterus: normal bimanual exam, normal palpation, uterine size normal, bladder normal to palpation, consistency normal, normal palpation, uterine mobility normal, uterine shape normal, No Cervical tenderness present, non-tender and no cervical motion tenderness Bimanual Exam- Adnexa, other: normal adnexae, no masses, normal and No adnexal tenderness Neuro General: patient oriented x3 Assessment & Plan Assessment & Plan (1) Encounter for routine gynecological examination: Code(s): Z01.419 - Encounter for gynecological examination (general) (routine) without abnormal findings (2) Obesity due to excess calories: Code(s): E66.09 - Other obesity due to excess calories (3) Cervical cancer screening: Code(s): Z12.4 - Encounter for screening for malignant neoplasm of cervix (4) Perimenopausal symptoms: Comment: Hot flashes and irregular menses, family history of early menopause... Code(s): N95.1 - Menopausal and female climacteric states (5) Urinary retention with incomplete bladder emptying: Comment: Discussed in some detail patient to seek urology consult. Code(s): R33.9 - Retention of urine, unspecified (6) Smoker unmotivated to quit: Comment: Has tried various methods, not interested in quitting at this moment... Code(s): F17.200 - Nicotine dependence, unspecified, uncomplicated Plan -----Discussed in this visit the following: healthy balanced diet, regular and consistent exercise, getting recommended health screens, doing the best she can for her particular health concerns, kegel exercises, pap smear screening and followup recommendations, mammography screening and SBE, normal changes in cycles in her life stage--- .---I Had the patient and demonstrate a Kegel contraction at the end of the exam, ordered in order to explain a Kegel exercise, and instructed the patient on doing the same exercises several times a day with increasing strength each time. One useful to is to imagine pursestring around the vagina and pulling it tight and upwards as if raising the vagina, or imagining that her tight muscles are on the 1st floor and she is trying to pull them up to the 5th floor and then slowly letting them go down. To try to do these several times a day but focus on the quality and the strength of the exercises more than the quantity, and tried isolate just those muscles and not involve other body parts.-patient was able to recreate a good Kegel and she does them several times a day. She has no interest in a PT referral. She feels she does not have time for it and she actually does Kegel fairly well anyway Discussed asking her primary care provider for a urology consult she has not seeing her primary until the summer I suggested she call for referral but then I offered to place the referral myself and suggest that the patient call her primary and just let her know that we have placed urology consult. Discussed various strategies to try and ensure that she is emptying as much as she can and she already is aware not to try and hold her urine longer than necessary but it may be years of doing that that may have contributed as well. Pap smear was done as well as testing for gonorrhea chlamydia trichomoniasis Gardnerella and Tania. Discussed smoking cessation and cutting back right now it is her stress reliever so she needs it. Orders: Referrals Urology Referral N95.1 - Menopausal and female climacteric states, R33.9 - Retention of urine, unspecified Coding Level of Care Code New Pt Prev Care 40-64y(68265) Diagnoses Encounter for routine gynecological examination Z01.419 Obesity due to excess calories E66.09 Cervical cancer screening Z12.4 Perimenopausal symptoms N95.1 Urinary retention with incomplete bladder emptying R33.9 Smoker unmotivated to quit F17.200
== END 2023-08-25 13:50 | disposition home or self-care (01) ==
LOC: HO.HWSM 11:21
PROVIDERS: PCP Internal Medicine; Visit Provider Advanced Practice Midwife
DX: Z01.419 Encounter for gynecological examination (general) (routine) without abnormal findings (principal); E66.09 Other obesity due to excess calories; Z12.4 Encounter for screening for malignant neoplasm of cervix; N95.1 Menopausal and female climacteric states; R33.9 Retention of urine, unspecified; F17.200 Nicotine dependence, unspecified, uncomplicated
CPT/HCPCS: 99386

== ENCOUNTER 2023-08-25 11:21 | Outpatient (REF) | payer OTHER, SELFPAY ==
[2023-08-26 02:19] LABS: CT PCR NOT DETECTED (Not Detect.); NG PCR NOT DETECTED (Not Detect.)
[2023-08-26 13:37] LABS: BV Int Neg Control Negative (Negative); BV Int Pos Control Positive (Positive)
[2023-09-01 20:19] LABS: HPV mRNA E6/E7 rflx Not Detected (Not Detected)
== END 2023-08-25 11:22 | disposition home or self-care (01) ==
LOC: HO.LNP 11:21
PROVIDERS: PCP Internal Medicine; Visit Provider Advanced Practice Midwife
DX: Z01.419 Encounter for gynecological examination (general) (routine) without abnormal findings (principal); N95.1 Menopausal and female climacteric states; R33.9 Retention of urine, unspecified; E66.09 Other obesity due to excess calories; Z11.3 Encounter for screening for infections with a predominantly sexual mode of transmission; Z79.899 Other long term (current) drug therapy
CPT/HCPCS: 0353U; 87480; 87510; 87624; 87660; 88142; 99386

== ENCOUNTER 2023-09-18 11:20 | Outpatient (AMB) | payer OTHER, SELFPAY ==
--- NOTE | 2023-09-18 11:25 | AM.OFFWIN_ITS ---
Intake Vital Signs 09/18/23 11:26 Height 5 ft 2 in Weight 205 lb BMI 37.5 BP 110/64 Blood Pressure Location Lt brachial Position Sitting Pulse 76 Pulse Source Pulse Oximeter Temp 97.9 F Temp Source Oral Pulse Oximetry (%) 97 Oxygen Delivery Method Room Air Intake Visit Reasons: EP RT eye Intake Note: pt is here for c/o right eye lid swollen, itchy and red Patient Tobacco Use Status: Current everyday Tobacco user Allergies oxycodone Allergy (Unknown, Verified 09/18/23 11:26) unknown Do you need a note to return to daycare/school/sports/work: No HPI HPI Comments History of Present Illness Details 47-year-old female that presents for rig ht eyelid swelling. Swelling has been progressively getting worse x1 week. Denies any pain known trauma to the area although she regularly scratches in inches her eyes. No vision changes or pain with eye movement fever or chills PFSH Medical History Lipid disorder Migraine headache with aura Restless leg syndrome Surgical History No pertinent past surgical history Family History (Updated 08/25/23 @ 11:33 by FRITZ Littlejohn) Paternal Grandmother Colon cancer Maternal Aunt Breast cancer Social History Housing: House Patient Tobacco Use Status: Current everyday Tobacco user Cigarette Packs Per Day: 0.5 Cigarettes Per Day: 10 e-Cigarette/Vaping Use: Never Used service: No Current occupational status: employed Current occupational exposures/hazards: No Cognitive needs: No Hearing needs: No Vision needs: No Female Reproductive History Menstrual Age of Menarche: 14 Physical Exam Vital Signs: Last Vital Signs Temp 97.9 F 09/18/23 11:26 Pulse 76 09/18/23 11:26 BP 110/64 09/18/23 11:26 Pulse Ox 97 09/18/23 11:26 Oxygen Delivery Method Room Air 09/18/23 11:26 BMI result Body Mass Index 37.5 Const General: cooperative, healthy appearing, no acute distress and alert Orientation/consciousness: patient oriented x3 Limitations: no limitations HEENT Other: Significant upper eyelid swelling on the right side. No conjunctival injection pain with extraocular movements Head: Yes normal to inspection Ears: hearing grossly normal bilaterally General nose exam: Normal external nose present Resp Effort & Inspection: normal respiratory effort and able to speak in complete sentences Cardio Rate: regular rate Skin General skin exam: no rashes or lesions noted Neuro General: patient oriented x3 Extrem General: Yes normal to inspection Assessment & Plan Assessment & Plan (1) Preseptal cellulitis: Code(s): L03.213 - Periorbital cellulitis Plan: VSs. Unclear etiology of eyelid swelling suspect possible preseptal cellulitis at this time will treat with Augmentin b.i.d. times 10 days. Strict return precautions given Medications: New amoxicillin-pot clavulanate 875-125 mg 1 tab PO BID 20 tabs 0RF 10 days Coding Level of Care Code Est Pt Level 3 (67095) Diagnoses Preseptal cellulitis L03.213
[2023-09-18 11:26] VITALS: BP 110/64; PULSE 76; TEMP 36.6; O2SAT 97; BMI 37.5
== END 2023-09-18 11:52 | disposition home or self-care (01) ==
PROVIDERS: PCP Internal Medicine; Visit Provider Physician Assistant
DX: L03.213 Periorbital cellulitis (principal)
CPT/HCPCS: 99051; 99213

== ENCOUNTER 2023-12-01 11:53 | Outpatient (AMB) | payer OTHER, SELFPAY ==
[2023-12-01 11:54] VITALS: BP 112/68; PULSE 85; O2SAT 100; BMI 37.3
--- NOTE | 2023-12-01 11:54 | MHC.PC.OV ---
Vital Signs 12/01/23 11:54 Height 5 ft 2 in Weight 204 lb 2 oz BMI 37.3 BP 112/68 Blood Pressure Location Rt brachial Position Sitting Pulse 85 Pulse Source Pulse Oximeter Pulse Oximetry (%) 100 Oxygen Delivery Method Room Air Intake Visit Reasons: Menopause Allergies oxycodone Allergy (Unknown, Verified 12/01/23 11:54) unknown Medication List - Last Reconciled 12/01/23 by Abby Funes MD loratadine 10 mg PO DAILY Tobacco use date assessed: 12/01/23 Dental Screening Dental Screen Date: 12/01/23 Did you have a dental visit in the last 12 months?: Yes Did you have a dental problem in the last 6 months where you did not have access to dental care?: No Was dental information given to patient?: Patient has dentist HPI Menopause HPI Details Patient is a 48-year-old female came in today to talk about menopausal symptoms Patient says that she is having hot flashes at night so much so that she wakes up white Also having mood disorder, get angry easily and feeling irritable Patient says that her daughter has sent her because she has been very rose lately Patient says that she has not had. In 7 months I am starting her on venlafaxine 37.5 mg once a day We will book a follow-up appointment in 3 weeks [facility] Medical History Lipid disorder Migraine headache with aura Restless leg syndrome Surgical History No pertinent past surgical history Family History Paternal Grandmother Colon cancer Maternal Aunt Breast cancer Social History Housing: House Patient Tobacco Use Status: Current everyday Tobacco user Cigarette Packs Per Day: 0.5 Cigarettes Per Day: 10 e-Cigarette/Vaping Use: Never Used service: No Current occupational status: employed Current occupational exposures/hazards: No Cognitive needs: No Hearing needs: No Vision needs: No Female Reproductive History Menstrual Age of Menarche: 14 Questionnaire PHQ-9 Over the last 2 weeks, how often have you been bothered by any of the following problems? 1. Little interest or pleasure in doing things: several days 2. Feeling down, depressed, or hopeless: not at all 3. Trouble falling or staying asleep, or sleeping too much: several days 4. Feeling tired or having little energy: not at all 5. Poor appetite or overeating: several days 6. Feeling bad about yourself - or that you are a failure or have let yourself or your family down: not at all 7. Trouble concentrating on things, such as reading the newspaper or watching television: not at all 8. Moving or speaking so slowly that other people could have noticed. Or the opposite - being so fidgety or restless that you have been moving around a lot more than usual: not at all 9. Thoughts that you would be better off or of hurting yourself in some way: not at all Total score: 3 Depression Screening Interpretation: Negative Depression Screening Done: Yes 71985 - PHQ-9 Billing: Yes Source: Developed by Drs. Juan Phillips, Marleni Brown, Cabrera Martin and colleagues, with an educational ponce from [employer]. Thrive Questionnaire Date Thrive assessed: 12/01/23 I am a: Patient What is your living situation today?: I have a steady place to live Within the past 12 months, did the food you bought not last and you didn't have the money to get more?: Never true Within the past 12 months, did you worry whether your food would run out before you got money to buy more?: Never true Do you have trouble paying for medicines?: No Do you have trouble getting transportation to medical appointments?: No Do you have trouble paying your heating and electricity bill?: No Do you have trouble taking care of your child, family member or friend?: No Do you have trouble with day-to-day activities such as bathing, preparing meals, shopping, managing finances, etc.?: No Are you currently unemployed and looking for a job?: No Are you interested in more education?: No Please select the resources that you would like help with: None Currently or been in a relationship where the following occur: no concerns reported THRIVE Score: 0 AUDIT C Alcohol Use Questionnaire (AUDIT-C) 1. How often do you have a drink containing alcohol?: 2-4 times a month 2. How many drinks containing alcohol do you have on a typical day when you are drinking?: 1 or 2 3. How often do you have six or more drinks on one occasion?: Never Total Score: 2 Score Reviewed/Action Taken: Yes ALLAN-7 AMB Questionnaire ALLAN-7 Date LALAN - 7 assessed: 12/01/23 Feeling nervous, anxious, or on edge: 0 = Not at all Not being able to stop or control worryin = Not at all Worrying too much about different things: 0 = Not at all Trouble relaxin = Not at all Being so restless that it is hard to sit still: 0 = Not at all Becoming easily annoyed or irritable: 0 = Not at all Feeling afraid as if something awful might happen: 0 = Not at all Total ALLAN-7 score (0-4 normal; 5-9 mild; 10-14 moderate; 15-21 severe): 0 Source: Developed by Drs. Juan Phillips, Marleni Brown, Cabrera Martin and colleagues, with an educational ponce from [employer]. ALLAN-7 Assessment Billing ALLAN-7 Assessment Tool: ALLAN-7 Assessment 09203 Review of Systems Const Denies chills and Denies fever(s) ENT Denies epistaxis and Denies nasal discharge Card Denies chest pain Resp Denies chest congestion, Denies cough and Denies hemoptysis GI Denies diarrhea and Denies nausea Skin/Breast Denies rash Neuro Reports no additional complaints Psych Reports no additional complaints Endo Reports no additional complaints Physical exam (Primary Care) Vital Signs: Last Vital Signs Pulse 85 12/01/23 11:54 BP 112/68 12/01/23 11:54 Pulse Ox 100 12/01/23 11:54 Oxygen Delivery Method Room Air 12/01/23 11:54 BMI result Body Mass Index 37.3 Tobacco/Smoking Status: Tobacco use Status Tobacco use date assessed 12/01/23 12/01/23 12:01 Patient Tobacco Use Status Current everyday Tobacco 12/01/23 12:01 e-Cigarette/Vaping Use Never Used 12/01/23 12:01 PHQ-9: PHQ-9 Score PHQ-9: Total score 3 12/01/23 12:41 Depression Screening Interpretation: Negative Thrive Assessment: Date of Thrive Assessment Date Thrive assessed 12/01/23 12/01/23 12:16 Currently or been in a relationship where the following occur: no concerns reported Const General: cooperative, comfortable and no acute distress Orientation/consciousness: patient oriented x3 HENCA Head: Yes normocephalic Eyes General: appearance normal, both eyes and all related structures Neck Neck: Yes supple Resp Effort & Inspection: normal respiratory effort, no cough and no stridor Cardio Rhythm: regular rhythm Heart sounds: S1 normal heart sound present and S2 normal heart sound present Skin Other: Patient has also developed itchy rash under arms left more than right for the past few days, on examination it seems like a fungal rash General skin exam: turgor normal Neuro General: patient oriented x3, tone normal and moves all extremities Extrem Right lower extremity: no edema Left lower extremity: no edema Assessment and Plan Assessment & Plan (1) Menopausal disorder: Code(s): N95.9 - Unspecified menopausal and perimenopausal disorder (2) Menopausal hot flushes: Code(s): N95.1 - Menopausal and female climacteric states (3) Irritability: Code(s): R45.4 - Irritability and anger (4) Excessive anger: Code(s): R45.4 - Irritability and anger (5) Tinea corporis: Code(s): B35.4 - Tinea corporis Plan Patient is a 48-year-old female came in today to talk about menopausal symptoms Patient says that she is having hot flashes at night so much so that she wakes up white Also having mood disorder, get angry easily and feeling irritable Patient says that her daughter has sent her because she has been very rose lately Patient says that she has not had. In 7 months I am starting her on venlafaxine 37.5 mg once a day We will book a follow-up appointment in 3 weeks She is also complaining of pruritic rash under arms left more than right for the past few days On examination it seems like a tinea corporis, I have sent Lotrisone cream she is to use that once at night until rash resolves In the morning after taking shower patient has to try completely and then use baby powder or goal lb powder Medications: New clotrimazole-betamethasone 1-0.05 % 1 appl topical ONCE 30 days 45 grams 0RF venlafaxine ER 37.5 mg PO DAILY 30 caps 0RF Coding Level of Care Code Est Pt Level 3 (77643) Diagnoses Menopausal disorder N95.9 Menopausal hot flushes N95.1 Irritability R45.4 Excessive anger R45.4 Tinea corporis B35.4 Additional Codes ALLAN-7 Assessment Billing - ALLAN-7 Assessment Tool: ALLAN-7 Assessment 06235 ([id number])
== END 2023-12-01 14:08 | disposition home or self-care (01) ==
PROVIDERS: PCP Internal Medicine; Visit Provider Internal Medicine
DX: N95.9 Unspecified menopausal and perimenopausal disorder (principal); N95.1 Menopausal and female climacteric states; R45.4 Irritability and anger; B35.4 Tinea corporis
CPT/HCPCS: 99213

== ENCOUNTER 2023-12-06 13:01 | Outpatient (AMB) | payer OTHER, SELFPAY ==
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
[2023-12-06 13:06] VITALS: BP 128/78; PULSE 88; RESP 16; O2SAT 99; BMI 37.1
== END 2023-12-06 13:15 | disposition home or self-care (01) ==
PROVIDERS: PCP Internal Medicine; Visit Provider Anesthesiology
DX: M43.06 Spondylolysis, lumbar region (principal); M43.17 Spondylolisthesis, lumbosacral region; M47.816 Spondylosis without myelopathy or radiculopathy, lumbar region; M25.551 Pain in right hip; M54.17 Radiculopathy, lumbosacral region
CPT/HCPCS: 99213

== ENCOUNTER → 2023-12-06 13:01 | Outpatient (BNVA) | payer OTHER, SELFPAY | PROVIDERS: PCP Internal Medicine; Visit Provider Anesthesiology ==

== ENCOUNTER 2023-12-23 08:28 | Outpatient (AMB) | payer OTHER, SELFPAY ==
--- NOTE | 2023-12-23 09:15 | MHC.PC.OV ---
Intake Visit Reasons: 3WK F/U Telehealth Allergies oxycodone Allergy (Unknown, Verified 12/23/23 09:16) unknown Medication List - Last Reconciled 12/23/23 by Abby Funes MD loratadine 10 mg PO DAILY venlafaxine ER 37.5 mg PO DAILY Tobacco use date assessed: 12/23/23 Dental Screening Dental Screen Date: 12/23/23 Did you have a dental visit in the last 12 months?: Yes Did you have a dental problem in the last 6 months where you did not have access to dental care?: No Was dental information given to patient?: Patient has dentist HPI 3WK F/U Telehealth HPI Details doing much better with Venlafaxin 37.5 sweating better at night and mood is stable was having excessive anger before have apt in feb for [facility] Medical History Lipid disorder Migraine headache with aura Restless leg syndrome Surgical History No pertinent past surgical history Family History Paternal Grandmother Colon cancer Maternal Aunt Breast cancer Social History Housing: House Patient Tobacco Use Status: Current everyday Tobacco user Cigarette Packs Per Day: 0.5 Cigarettes Per Day: 10 e-Cigarette/Vaping Use: Never Used service: No Current occupational status: employed Current occupational exposures/hazards: No Cognitive needs: No Hearing needs: No Vision needs: No Female Reproductive History Menstrual Age of Menarche: 14 Questionnaire Thrive Questionnaire Date Thrive assessed: 12/01/23 AUDIT C Alcohol Use Questionnaire (AUDIT-C) 1. How often do you have a drink containing alcohol?: 2-4 times a month 2. How many drinks containing alcohol do you have on a typical day when you are drinking?: 1 or 2 3. How often do you have six or more drinks on one occasion?: Never Total Score: 2 Score Reviewed/Action Taken: Yes ALLAN-7 AMB Questionnaire ALLAN-7 Date ALLAN - 7 assessed: 12/01/23 Source: Developed by Drs. Juan Phillips, Marleni Cabrera Moreira and colleagues, with an educational ponce from [employer]. Review of Systems Const Denies chills and Denies fever(s) ENT Denies epistaxis and Denies nasal discharge Card Denies chest pain Resp Denies chest congestion, Denies cough and Denies hemoptysis GI Denies diarrhea and Denies nausea Skin/Breast Denies rash Neuro Reports no additional complaints Psych Reports no additional complaints Endo Reports no additional complaints Physical exam (Primary Care) Tobacco/Smoking Status: Tobacco use Status Tobacco use date assessed 12/23/23 12/23/23 09:17 Patient Tobacco Use Status Current everyday Tobacco 12/23/23 09:17 e-Cigarette/Vaping Use Never Used 12/23/23 09:17 Thrive Assessment: Date of Thrive Assessment Date Thrive assessed 12/01/23 12/23/23 09:17 Telehealth Telehealth Location of provider rendering services: practice address Location of patient: address on file Patient Identification confirmed using: Name, : Yes Telehealth method: voice only Patient verbally consented to treatment: Yes Patient verbally consented to billing insurance company: Yes Patient informed of any privacy concerns related to visit: Yes Assessment and Plan Assessment & Plan (1) Menopausal disorder: Code(s): N95.9 - Unspecified menopausal and perimenopausal disorder (2) Menopausal hot flushes: Code(s): N95.1 - Menopausal and female climacteric states (3) Irritability: Code(s): R45.4 - Irritability and anger (4) Excessive anger: Code(s): R45.4 - Irritability and anger Plan doing much better with Venlafaxin 37.5 sweating better at night and mood is stable was having excessive anger before have apt in aug for PE Medications: Refilled venlafaxine ER 37.5 mg PO DAILY 90 caps 1RF Coding Level of Care Code Tele Est Pt Level 3 (24302) Diagnoses Menopausal disorder N95.9 Menopausal hot flushes N95.1 Irritability R45.4 Excessive anger R45.4
== END 2023-12-23 16:49 | disposition home or self-care (01) ==
LOC: HO.HMGC 08:28
PROVIDERS: PCP Internal Medicine; Visit Provider Internal Medicine
DX: N95.9 Unspecified menopausal and perimenopausal disorder (principal); N95.1 Menopausal and female climacteric states; R45.4 Irritability and anger
CPT/HCPCS: 99213

== ENCOUNTER 2024-02-08 09:22 | Outpatient (AMB) | payer OTHER, SELFPAY ==
[2024-02-08 09:24] VITALS: BP 126/74; PULSE 89; O2SAT 97; BMI 37.0
--- NOTE | 2024-02-08 09:24 | MHC.PC.OV ---
Vital Signs 02/08/24 09:24 Height 5 ft 2 in Weight 202 lb 8 oz BMI 37.0 BP 126/74 Blood Pressure Location Rt brachial Position Sitting Pulse 89 Pulse Source Pulse Oximeter Pulse Oximetry (%) 97 Oxygen Delivery Method Room Air Intake Visit Reasons: Annual PE Allergies oxycodone Allergy (Unknown, Verified 02/08/24 09:27) unknown Medication List - Last Reconciled 02/08/24 by Abby Funes MD loratadine 10 mg PO DAILY venlafaxine ER 37.5 mg PO DAILY Tobacco use date assessed: 02/08/24 Dental Screening Dental Screen Date: 02/08/24 Did you have a dental visit in the last 12 months?: Yes Did you have a dental problem in the last 6 months where you did not have access to dental care?: No Was dental information given to patient?: Patient has dentist HPI Annual PE HPI Details Patient is a 48-year-old female came in today for physical exam Patient is a smoker of about 15 cigarettes a day for the past 14 years Talked about smoking cessation I offered her patches which she said has not work in the past And she has also tried Chantix which did not help Patient knows that if she need any further assistance she is to get back to me otherwise she will continue trying to quit gradually I have ordered pulmonary function test for her Allergies: Continued to have irritated cough which can also be a smoker's cough Mammogram was February of last year she has appointment coming up OBGYN at [facility] Patient declined colonoscopy today Her lipids were very high last year LDL 197 At 1 point she was taking medication and then she stopped She is willing to take medication again, simvastatin 40 mg sent Patient is to repeat labs in 2 months fasting. Follow-up 4 months physical exam 1 year Need to lose weight as well BMI is elevated at 37.0 [facility] Medical History Lipid disorder Migraine headache with aura Restless leg syndrome Surgical History No pertinent past surgical history Family History Paternal Grandmother Colon cancer Maternal Aunt Breast cancer Social History Housing: House Patient Tobacco Use Status: Current everyday Tobacco user Cigarette Packs Per Day: 0.5 Cigarettes Per Day: 10 e-Cigarette/Vaping Use: Never Used service: No Current occupational status: employed Current occupational exposures/hazards: No Cognitive needs: No Hearing needs: No Vision needs: No Female Reproductive History Menstrual Age of Menarche: 14 Questionnaire PHQ-9 Over the last 2 weeks, how often have you been bothered by any of the following problems? 1. Little interest or pleasure in doing things: not at all 2. Feeling down, depressed, or hopeless: not at all 3. Trouble falling or staying asleep, or sleeping too much: not at all 4. Feeling tired or having little energy: not at all 5. Poor appetite or overeating: not at all 6. Feeling bad about yourself - or that you are a failure or have let yourself or your family down: not at all 7. Trouble concentrating on things, such as reading the newspaper or watching television: not at all 8. Moving or speaking so slowly that other people could have noticed. Or the opposite - being so fidgety or restless that you have been moving around a lot more than usual: not at all 9. Thoughts that you would be better off or of hurting yourself in some way: not at all Total score: 0 Depression Screening Interpretation: Negative Depression Screening Done: Yes 86358 - PHQ-9 Billing: Yes Source: Developed by Drs. Juan Phillips, Marleni Brown, Cabrera Martin and colleagues, with an educational ponce from [employer]. Thrive Questionnaire Date Thrive assessed: 02/08/24 I am a: Patient What is your living situation today?: I have a steady place to live Within the past 12 months, did the food you bought not last and you didn't have the money to get more?: Never true Within the past 12 months, did you worry whether your food would run out before you got money to buy more?: Never true Do you have trouble paying for medicines?: No Do you have trouble getting transportation to medical appointments?: No Do you have trouble paying your heating and electricity bill?: No Do you have trouble taking care of your child, family member or friend?: No Do you have trouble with day-to-day activities such as bathing, preparing meals, shopping, managing finances, etc.?: No Are you currently unemployed and looking for a job?: No Are you interested in more education?: No Please select the resources that you would like help with: Housing/Usp Currently or been in a relationship where the following occur: No concerns reported THRIVE Score: 0 AUDIT C Alcohol Use Questionnaire (AUDIT-C) 1. How often do you have a drink containing alcohol?: Monthly or less 2. How many drinks containing alcohol do you have on a typical day when you are drinking?: 1 or 2 3. How often do you have six or more drinks on one occasion?: Never Total Score: 1 Score Reviewed/Action Taken: Yes ALLAN-7 AMB Questionnaire ALLAN-7 Date ALLAN - 7 assessed: 02/08/24 Feeling nervous, anxious, or on edge: 0 = Not at all Not being able to stop or control worryin = Not at all Worrying too much about different things: 0 = Not at all Trouble relaxin = Not at all Being so restless that it is hard to sit still: 0 = Not at all Becoming easily annoyed or irritable: 0 = Not at all Feeling afraid as if something awful might happen: 0 = Not at all Total ALLAN-7 score (0-4 normal; 5-9 mild; 10-14 moderate; 15-21 severe): 0 Source: Developed by Drs. Juan Phillips, Marleni Brown, Cabrera Martin and colleagues, with an educational ponce from [employer]. ALLAN-7 Assessment Billing ALLAN-7 Assessment Tool: ALLAN-7 Assessment 60689 Review of Systems Const Denies chills, Denies fever(s) and Denies headache(s) Eyes Denies blurry vision ENT Denies headache(s), Denies nasal discharge, Denies nasal obstruction, Denies odynophagia and Denies sinus pain Card Denies chest pain at rest and Denies chest pain with activity Resp Denies hemoptysis GI Denies diarrhea, Denies odynophagia, Denies vomiting and Denies hematemesis Reports as per HPI Musc Denies abnormal gait Skin/Breast Reports as per HPI Neuro Denies Neuro-related abnormal movements, Denies Abnormal speech present, Denies abnormal gait, Denies headache(s) and Denies Sensory deficit (Neuro) Psych Denies mood swings and Denies paranoia Endo Reports as per HPI Garth/Lymph Reports as per HPI Aller/Immun Reports as per HPI Physical exam (Primary Care) Vital Signs: Last Vital Signs Pulse 89 02/08/24 09:24 BP 126/74 02/08/24 09:24 Pulse Ox 97 02/08/24 09:24 Oxygen Delivery Method Room Air 02/08/24 09:24 BMI result Body Mass Index 37.0 Tobacco/Smoking Status: Tobacco use Status Tobacco use date assessed 02/08/24 02/08/24 09:28 Patient Tobacco Use Status Current everyday Tobacco 02/08/24 09:28 e-Cigarette/Vaping Use Never Used 02/08/24 09:28 PHQ-9: PHQ-9 Score PHQ-9: Total score 0 02/08/24 12:46 Depression Screening Interpretation: Negative Thrive Assessment: Date of Thrive Assessment Date Thrive assessed 02/08/24 02/08/24 09:28 Currently or been in a relationship where the following occur: No concerns reported Const General: cooperative, comfortable and no acute distress Orientation/consciousness: patient oriented x3 HENMT Head: Yes normocephalic and Yes atraumatic Eyes General: appearance normal, both eyes and all related structures Pupils: Equal, round and reactive pupils present EOM: EOMs intact bilaterally Neck Neck: Yes supple and No lymphadenopathy Thyroid: Thyroid normal Lymphatic: no lymphadenopathy noted Resp Effort & Inspection: normal respiratory effort and able to speak in complete sentences Auscultation: clear to auscultation bilaterally Cardio Heart sounds: S1 normal heart sound present and S2 normal heart sound present GI Palpation (GI): Soft to palpation and nontender Auscultation: normal bowel sounds General: Yes no CVA tenderness Back/Spine/Pelvis Back: no CVA tenderness Skin General skin exam: elasticity normal and turgor normal Neuro General: patient oriented x3 and gait normal Cranial nerves: Yes Equal, round and reactive pupils present Speech: No Abnormal speech present Sensory Exam: No Sensory deficit (Neuro) Coordination: tandem gait normal and Romberg test negative Extrem General: Yes normal exam except as noted and No edema Assessment and Plan Assessment & Plan (1) Encounter for general adult medical examination with abnormal findings: Code(s): Z00.01 - Encounter for general adult medical examination with abnormal findings (2) Obesity due to excess calories: Code(s): E66.09 - Other obesity due to excess calories Qualifiers: Body mass index: BMI 37.0-37.9 Obesity classification: adult class 2 (BMI 35 - 39.9) Serious obesity comorbidity presence: with serious comorbidity Qualified Code(s): E66.01 - Morbid (severe) obesity due to excess calories; Z68.37 - Body mass index [BMI] 37.0-37.9, adult (3) Smoker unmotivated to quit: Comment: Has tried various methods, not interested in quitting at this moment... Code(s): F17.200 - Nicotine dependence, unspecified, uncomplicated (4) Menopausal disorder: Code(s): N95.9 - Unspecified menopausal and perimenopausal disorder (5) Lipid disorder: Code(s): E78.9 - Disorder of lipoprotein metabolism, unspecified (6) Colonoscopy refused: Code(s): Z53.20 - Procedure and treatment not carried out because of patient's decision for unspecified reasons Plan Patient is a 48-year-old female came in today for physical exam Patient is a smoker of about 15 cigarettes a day for the past 14 years Talked about smoking cessation I offered her patches which she said has not work in the past And she has also tried Chantix which did not help Patient knows that if she need any further assistance she is to get back to me otherwise she will continue trying to quit gradually I have ordered pulmonary function test for her Allergies: Continued to have irritated cough which can also be a smoker's cough Mammogram was February of last year she has appointment coming up OBGYN at [facility] Patient declined colonoscopy today Her lipids were very high last year LDL 197 At 1 point she was taking medication and then she stopped She is willing to take medication again, simvastatin 40 mg sent Patient is to repeat labs in 2 months fasting. Mood are stable with venlafaxine 37.5 mg patient would like to continue that. Follow-up 4 months physical exam 1 year Need to lose weight as well BMI is elevated at 37.0 Orders: Orders Comprehensive [place]. Panel Fast Today E66.01 - Morbid (severe) obesity due to excess calories, E78.9 - Disorder of lipoprotein metabolism, unspecified, Z00.01 - Encounter for general adult medical examination with abnormal findings, Z68.37 - Body mass index [BMI] 37.0-37.9, adult Lipid Panel Today E66.01 - Morbid (severe) obesity due to excess calories, E78.9 - Disorder of lipoprotein metabolism, unspecified, Z00.01 - Encounter for general adult medical examination with abnormal findings, Z68.37 - Body mass index [BMI] 37.0-37.9, adult Vitamin D 25-OH (D2 and D3) Today E66.01 - Morbid (severe) obesity due to excess calories, E78.9 - Disorder of lipoprotein metabolism, unspecified, Z00.01 - Encounter for general adult medical examination with abnormal findings, Z68.37 - Body mass index [BMI] 37.0-37.9, adult TSH reflex Free T4 Today E66.01 - Morbid (severe) obesity due to excess calories, E78.9 - Disorder of lipoprotein metabolism, unspecified, Z00.01 - Encounter for general adult medical examination with abnormal findings, Z68.37 - Body mass index [BMI] 37.0-37.9, adult Complete Blood Count Auto Diff Today E66.01 - Morbid (severe) obesity due to excess calories, E78.9 - Disorder of lipoprotein metabolism, unspecified, Z00.01 - Encounter for general adult medical examination with abnormal findings, Z68.37 - Body mass index [BMI] 37.0-37.9, adult Medications: New simvastatin 40 mg PO DAILY 90 tabs 1RF Coding Level of Care Code Est Pt Level 3 (87720) Est Pt Prev Care 40-64y(54737) Diagnoses Encounter for general adult medical examination with abnormal findings Z00.01 Class 2 severe obesity due to excess calories with serious comorbidity and body mass index (BMI) of 37.0 to 37.9 in adult E66.01; Z68.37 Body mass index: BMI 37.0-37.9 Obesity classification: adult class 2 (BMI 35 - 39.9) Serious obesity comorbidity presence: with serious comorbidity Smoker unmotivated to quit F17.200 Menopausal disorder N95.9 Lipid disorder E78.9 Colonoscopy refused Z53.20 Additional Codes ALLAN-7 Assessment Billing - ALLAN-7 Assessment Tool: ALLAN-7 Assessment 05211 ([id number])
== END 2024-02-08 12:24 | disposition home or self-care (01) ==
PROVIDERS: PCP Internal Medicine; Visit Provider Internal Medicine
DX: Z00.00 Encounter for general adult medical examination without abnormal findings (principal); E66.01 Morbid (severe) obesity due to excess calories; Z68.37 Body mass index [BMI] 37.0-37.9, adult; F17.200 Nicotine dependence, unspecified, uncomplicated; N95.9 Unspecified menopausal and perimenopausal disorder; E78.9 Disorder of lipoprotein metabolism, unspecified; Z53.20 Procedure and treatment not carried out because of patient's decision for unspecified reasons
CPT/HCPCS: 99213; 99396

== ENCOUNTER 2024-03-08 11:42 | Outpatient (REF) | payer OTHER, SELFPAY ==
--- NOTE | ~2024-03-08 | MM_ITS ---
EXAMINATION: MM SCREENING DIGITAL BREAST TOMOSYNTHESIS, BILATERAL CLINICAL INFORMATION: Screening. Asymptomatic. COMPARISON: Mammography: Comparison is made with available priors TECHNIQUE: Digital breast mammography with tomosynthesis is performed in both the craniocaudal and mediolateral oblique views along with computer-aided detection (CAD). FINDINGS: There are scattered areas of fibroglandular density (ACR BI-RADS breast composition Category b). There are no significant masses, abnormal calcifications, or other abnormalities. MM/MM tomosynthesis screening BI IMPRESSION: No mammographic evidence of malignancy. ASSESSMENT: BI-RADS BI-RADS 1 - Negative RECOMMENDATION: Routine annual mammography screening. 1 year F/U This examination should not preclude the clinical evaluation of a suspicious palpable abnormality. This patient's information was entered into a reminder system with a target due date for their next mammogram. Electronically signed by: Holly Byrnes DO 03/26/2024 09:35 AM EDT
== END 2024-03-08 11:43 | disposition home or self-care (01) ==
LOC: HO.MAMMO 11:42
PROVIDERS: PCP Internal Medicine; Visit Provider Internal Medicine
DX: Z12.31 Encounter for screening mammogram for malignant neoplasm of breast (principal)
CPT/HCPCS: 77063; 77067

== ENCOUNTER → 2024-03-08 11:45 | Outpatient (BNV) | payer OTHER, SELFPAY | PROVIDERS: PCP Internal Medicine; Visit Provider Internal Medicine | DX: Z12.31 Encounter for screening mammogram for malignant neoplasm of breast (principal) | CPT/HCPCS: 77063; 77067 ==

== ENCOUNTER 2024-03-21 07:04 | Outpatient (REF) | payer OTHER, SELFPAY | END 2024-03-21 07:05 | disposition home or self-care (01) | LOC: CF 07:04 | PROVIDERS: Visit Provider Anesthesiology | DX: M54.17 Radiculopathy, lumbosacral region (principal) | CPT/HCPCS: 64483; 64484; J3301; Q9967 ==

== ENCOUNTER 2024-03-21 07:35 | Outpatient (AMB) | payer OTHER, SELFPAY ==
[2024-03-21 07:44] VITALS: BP 122/59; PULSE 86; RESP 17; O2SAT 98
--- NOTE | 2024-03-21 07:44 | A.OFFVIS_ITS ---
Vital Signs 03/21/24 07:44 03/21/24 09:52 BP 122/59 L 126/64 Blood Pressure Location Rt brachial Lt brachial Position Sitting Sitting Respiration 17 16 Pulse 86 73 Pulse Source Pulse Oximeter Pulse Oximeter Pulse Oximetry (%) 98 99 Oxygen Delivery Method Room Air Room Air Comment Pre-op post-op Intake Visit Reasons: Ryley L5-S1 TFESI Allergies oxycodone Allergy (Unknown, Verified 03/21/24 09:53) unknown [facility] Medical History Lipid disorder Migraine headache with aura Restless leg syndrome Surgical History No pertinent past surgical history Family History Paternal Grandmother Colon cancer Maternal Aunt Breast cancer Social History Housing: House Patient Tobacco Use Status: Current everyday Tobacco user Cigarette Packs Per Day: 0.5 Cigarettes Per Day: 10 e-Cigarette/Vaping Use: Never Used service: No Current occupational status: employed Current occupational exposures/hazards: No Cognitive needs: No Hearing needs: No Vision needs: No Female Reproductive History Menstrual Age of Menarche: 14 Physical Exam Vital Signs: Last Vital Signs Pulse 73 03/21/24 09:52 Resp 16 03/21/24 09:52 BP 126/64 03/21/24 09:52 Pulse Ox 99 03/21/24 09:52 Oxygen Delivery Method Room Air 03/21/24 09:52 Assessment & Plan Assessment & Plan (1) Pars defect of lumbar spine: Code(s): M43.06 - Spondylolysis, lumbar region Category: Medical Plan: Bilateral transforaminal epidural steroid injection L5-S1. Informed consent was explained to the patient. All questions were explained and? answered.? The patient was taken inside the operating room where he was positioned RIGHT lateral decubitus on the operating table.? Time-out was performed delineating correct site, side, the nature of the procedure, patient's allergy, preoperative antibiotic if needed.? All operating room staff was participating in OR time-out procedure.? The patient stated his name. The patient was positioned prone on operating table. Her lower back was prepped with ChloraPrep and draped with instability drapes. Sterilely draped C-arm was brought over the operating field and the picture of lower lumbar spine and upper sacral bone was obtained on the screen. Initial point of interest was del ineated as the right foramina. For the purpose tilting machine ipsilateral to the right 25 degrees from the sq view of L5 vertebra image the most white image of the right pedicle was obtained on the screen. 3 mm below the lowest point of the right pedicle of the 22 gauge 5 in needle was inserted through the skin wheal raised with lidocaine 1%. After that the needle was advanced to were the right L5-S1 foraminal on anterior posterior oblique and lateral views. When needle entered foramina injection of the contrast was performed delineating epidural and perineural spread of the contrast. Paresthesia was not reported by the patient. Upon completion of the contrast and the verification that there is no intravascular and intrathecal spread of the contrast injection of the treatment solution of the lidocaine 1% mixed with Kenalog 20 mg was injected into the foramina. Upon completion of this injection the needle was removed and procedure was repeated on the left side in me ring fashion. Upon completion of the procedures the needles were removed and sterile dressings were applied. Patient tolerated procedure well. She reported slight weakness in bilateral lower extremities upon completion of the procedure. She was instructed to arm take careful approach to walking and standing until the next few hours. Instruction of care were given to the patient. (2) Anterolisthesis of lumbosacral spine: Code(s): M43.17 - Spondylolisthesis, lumbosacral region Category: Medical (3) Spondylosis of lumbar region without myelopathy or radiculopathy: Code(s): M47.816 - Spondylosis without myelopathy or radiculopathy, lumbar region Category: Medical Plan Reviewed her MRI result with patient as well as Dr. Ballard. The results revealed bilateral L5 pars defect with mild anterolisthesis as well as bilateral L5 nerve root compression. Given these results, she was sent for lumbar spine xray with flexion/extension to evaluate stability. Results did not reveal any instability and she is interested in moving forward with injections. I will send her for bilateral L5-S1 TFESI with local and fluoroscopy, as she has tried PT for three months and continues HEP, as well as oral medications and topicals with minimal improvement in her pain. Expectations, risks and benefits were reviewed. All questions were answered and patient is in agreement of plan. Orders: Orders [place] guidance in treatment room Today M54.17 - Radiculopathy, lumbosacral region Coding Level of Care Code Procedure Only Diagnoses Pars defect of lumbar spine M43.06 Anterolisthesis of lumbosacral spine M43.17 Spondylosis of lumbar region without myelopathy or radiculopathy M47.816
[2024-03-21 09:52] VITALS: BP 126/64; PULSE 73; RESP 16; O2SAT 99
== END 2024-03-21 09:26 | disposition home or self-care (01) ==
LOC: HO.PMCPRC 07:35
PROVIDERS: PCP Internal Medicine; Visit Provider Anesthesiology
DX: M54.17 Radiculopathy, lumbosacral region (principal)
CPT/HCPCS: 64483; 64484

== ENCOUNTER 2024-04-13 14:59 | Outpatient (AMB) | payer OTHER, SELFPAY ==
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
[2024-04-13 15:04] VITALS: BP 128/60; PULSE 75; RESP 14; O2SAT 98; BMI 37.0
== END 2024-04-13 15:15 | disposition home or self-care (01) ==
PROVIDERS: PCP Internal Medicine; Visit Provider Anesthesiology
DX: M43.17 Spondylolisthesis, lumbosacral region (principal); M43.06 Spondylolysis, lumbar region; M47.816 Spondylosis without myelopathy or radiculopathy, lumbar region; M25.551 Pain in right hip; M54.17 Radiculopathy, lumbosacral region
CPT/HCPCS: 99213

== ENCOUNTER → 2024-04-13 14:59 | Outpatient (BNVA) | payer OTHER, SELFPAY | PROVIDERS: PCP Internal Medicine; Visit Provider Anesthesiology ==

== ENCOUNTER 2024-06-20 07:26 | Outpatient (REF) | payer OTHER, SELFPAY ==
[2024-06-20 09:59] LABS: MANUAL DIFF FLAG NO
[2024-06-20 10:07] LABS: Basophils Percent Auto 0.3 % (0-2); Eosinophils Absolute Auto 0.2 X10*3/uL (0.0-0.4); Eosinophils Percent Auto 2.7 % (0-4); Hematocrit 41.6 % (37.0-47.0); Hemoglobin 13.9 g/dl (12.0-16.0); Imm Gran Abs Auto 0.02 X10*3/uL (0.00-0.03); Imm Gran Pct Auto 0.3 % (0.0-0.4); Lymphocytes Absolute Auto 3.5 X10*3/uL (1.2-4.9); Mean Corpuscular HGB Conc 33.4 g/dl (31.0-35.0); Mean Corpuscular Hemoglobin 31.9 pg (27.0-33.0); Mean Corpuscular Volume 95.4 fL (80.0-98.0); Mean Platelet Volume 10.8 fL (9.4-12.3); Monocytes Absolute Auto 0.5 X10*3/uL (0.1-1.2); Monocytes Percent Auto 6.6 % (2-11); Neutrophils Absolute Auto 3.4 x10*3/uL (2.0-8.3); Neutrophils Percent Auto 44.1 % (45-73); Platelet Count 241 X10*3/uL (160-400); Red Blood Count 4.36 X10*6/uL (4.20-5.50); Red Cell Distribution Width 13.2 % (11.0-16.0); White Blood Count 7.7 X10*3/uL (4.8-10.8)
[2024-06-20 10:42] LABS: Alanine Aminotransferase 17 U/L (0-31); Alkaline Phosphatase 67 U/L (39-117); Anion Gap 9 (12-20); Aspartate Amino Transferase 18 U/L (5-31); Bilirubin Total 0.3 mg/dL (0.0-1.0); Blood Urea Nitrogen 11 mg/dL (9-16); Calcium 9.2 mg/dL (8.4-10.2); Carbon Dioxide 26 mmol/L (22-29); Chloride 107 mmol/L (96-108); Cholesterol 174 mg/dL (<200); Estimated Glomerular Filt Rate > 60; Glucose Fasting 87 mg/dL (60-99); HDL Cholesterol 43 mg/dL (>40); LDL Cholesterol Calculated 101 mg/dL (<100); Potassium 3.6 mmol/L (3.3-5.1); Sodium 138 mmol/L (135-145); Triglycerides 150 mg/dL (<150)
[2024-06-20 10:43] LABS: TSH reflex Free T4 1.15 uIU/mL (0.32-4.0)
[2024-06-24 17:23] LABS: Vitamin D 25-OH, D2 <4 ng/mL; Vitamin D 25-OH, D3 18 ng/mL; Vitamin D 25-OH, Total 18 ng/mL (30-100)
== END 2024-06-20 07:27 | disposition home or self-care (01) ==
LOC: HO.HMGCLDS 07:26
PROVIDERS: PCP Internal Medicine; Visit Provider Internal Medicine
DX: Z00.01 Encounter for general adult medical examination with abnormal findings (principal); E66.01 Morbid (severe) obesity due to excess calories; Z68.37 Body mass index [BMI] 37.0-37.9, adult; E78.9 Disorder of lipoprotein metabolism, unspecified
CPT/HCPCS: 36415; 80053; 80061; 82306; 84443; 85025

== ENCOUNTER 2024-06-23 07:52 | Outpatient (AMB) | payer OTHER, SELFPAY ==
[2024-06-23 07:59] VITALS: BP 120/80; PULSE 68; O2SAT 98; BMI 37.7
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
== END 2024-06-23 08:21 | disposition home or self-care (01) ==
PROVIDERS: PCP Internal Medicine; Visit Provider Internal Medicine
DX: E78.9 Disorder of lipoprotein metabolism, unspecified (principal); F39 Unspecified mood [affective] disorder; H93.8X1 Other specified disorders of right ear; E66.01 Morbid (severe) obesity due to excess calories; Z68.37 Body mass index [BMI] 37.0-37.9, adult

== ENCOUNTER → 2024-06-23 07:52 | Outpatient (BNVA) | payer OTHER, SELFPAY | PROVIDERS: PCP Internal Medicine; Visit Provider Internal Medicine ==

== ENCOUNTER 2024-11-28 07:37 | Outpatient (REF) | payer OTHER, SELFPAY ==
[2024-11-28 10:07] LABS: MANUAL DIFF FLAG NO
[2024-11-28 10:18] LABS: Basophils Percent Auto 0.4 % (0-2); Eosinophils Absolute Auto 0.2 X10*3/uL (0.0-0.4); Hematocrit 40.6 % (37.0-47.0); Hemoglobin 13.3 g/dl (12.0-16.0); Imm Gran Abs Auto 0.01 X10*3/uL (0.00-0.03); Imm Gran Pct Auto 0.1 % (0.0-0.4); Lymphocytes Absolute Auto 3.8 X10*3/uL (1.2-4.9); Lymphocytes Percent Auto 51.8 % (20-40); Mean Corpuscular HGB Conc 32.8 g/dl (31.0-35.0); Mean Corpuscular Hemoglobin 30.9 pg (27.0-33.0); Mean Corpuscular Volume 94.4 fL (80.0-98.0); Mean Platelet Volume 11.4 fL (9.4-12.3); Monocytes Absolute Auto 0.5 X10*3/uL (0.1-1.2); Monocytes Percent Auto 6.5 % (2-11); Neutrophils Absolute Auto 2.8 x10*3/uL (2.0-8.3); Neutrophils Percent Auto 38.2 % (45-73); Platelet Count 221 X10*3/uL (160-400); Red Cell Distribution Width 13.2 % (11.0-16.0); White Blood Count 7.4 X10*3/uL (4.8-10.8)
[2024-11-28 10:30] LABS: Alanine Aminotransferase 20 U/L (0-31); Albumin Level 4.3 g/dL (3.5-5.0); Alkaline Phosphatase 61 U/L (39-117); Anion Gap 11 (12-20); Aspartate Amino Transferase 21 U/L (5-31); Bilirubin Total 0.2 mg/dL (0.0-1.0); Blood Urea Nitrogen 13 mg/dL (9-16); Calcium 9.5 mg/dL (8.4-10.2); Carbon Dioxide 24 mmol/L (22-29); Chloride 109 mmol/L (96-108); Estimated Glomerular Filt Rate > 60; Glucose Random 91 mg/dL (60-115); Potassium 3.8 mmol/L (3.3-5.1); Sodium 140 mmol/L (135-145); Total Protein 6.9 g/dL (6.5-8.0)
== END 2024-11-28 07:38 | disposition home or self-care (01) ==
LOC: HO.HMGCLDS 07:37
PROVIDERS: PCP Internal Medicine; Visit Provider Internal Medicine
DX: E78.9 Disorder of lipoprotein metabolism, unspecified (principal); Z68.37 Body mass index [BMI] 37.0-37.9, adult; E66.01 Morbid (severe) obesity due to excess calories; F39 Unspecified mood [affective] disorder; H93.8X1 Other specified disorders of right ear
CPT/HCPCS: 36415; 80053; 85025

== ENCOUNTER 2024-12-01 07:53 | Outpatient (AMB) | payer OTHER, SELFPAY ==
--- NOTE | 2024-12-01 08:23 | A.OFFPC_ITS ---
Intake Visit Reasons: 5 months f/up Allergies oxycodone Allergy (Unknown, Verified 06/23/24 08:00) unknown Medication List - Last Reconciled 12/01/24 by Abby Funes MD loratadine 10 mg PO DAILY simvastatin 40 mg PO DAILY venlafaxine ER 37.5 mg PO DAILY Tobacco use date assessed: 06/23/24 Dental Screening Dental Screen Date: 06/23/24 HPI 5 months f/up HPI Details History - The patient is a 49-year-old female pr esenting with vasomotor symptoms associated with menopause. - The patient reports that venlafaxine i s no longer effective for her menopausal symptoms, particularly hot flashes. - She acknowledges awareness of alternat mary beth treatments, such as estrogen, but is concerned about potential risks, including increased cancer risk, and mandates consultation with a commercial lines manager. - Her last gynecological visit was a yea r ago, and she plans to consult a new commercial lines manager at [facility]. - The patient currently resides in [facility] and requires assistance to arrange an appointment at the [facility] facility. - Additional health issues include stabl e hyperlipidemia, for which she takes simvastatin 40 mg daily. - There are no current symptoms of anemi a or inflammation based on her latest complete blood count, with stable kidney and good liver functions. Her low- density lipoprotein was not recently checked but had been stable previously. - Her recent labs indicated a deficiency in vitamin D, leading to an absence of current supplementation. - She reports joint pain primarily in he r knees and hips, with a family history of osteoporosis. Deficiency of vitamin D and osteoarthritis were discussed as potential causes for her joint pain. - The management of joint pain was previ ously with esaf-eox-tfpszbb medication like Tylenol or Aleve. - Her allergies are effectively controll ed with daily allergy pills. Problem List - Vasomotor symptoms associated with men opause - Vitamin D deficiency - Osteoarthritis - Hyperlipidemia - Allergic rhinitis Patient Instructions - Consider speaking with your gynecologi st about hormone treatments for menopausal symptoms. - Take vitamin D supplements as advised; it might be covered by insurance or available [id number]. - For joint pain, use Tylenol or Aleve w ith food as needed. - Continue taking simvastatin 40 mg hubert y for hyperlipidemia. - Your next appointment with me is on at 3:30 PM. Review of Systems - General: No fever no chills - Neurological: No headaches no dizziness - Ear nose throat: No sore throat no hearing difficulty no ear pain - Cardiovascular: No syncope, no chest pain, no palpitations - Gastrointestinal: No nausea vomiting or diarrhea - Endocrine: No polyuria polydipsia no heat intolerance - Genitourinary: No dysuria , no blood in urine PFSH Medical History Lipid disorder Migraine headache with aura Restless leg syndrome Surgical History No pertinent past surgical history Family History Paternal Grandmother Colon cancer Maternal Aunt Breast cancer Social History Housing: House Patient Tobacco Use Status: Current everyday Tobacco user Cigarette Packs Per Day: 0.5 Cigarettes Per Day: 10 e-Cigarette/Vaping Use: Never Used service: No Current occupational status: employed Current occupational exposures/hazards: No Cognitive needs: No Hearing needs: No Vision needs: No Female Reproductive History Menstrual Age of Menarche: 14 Questionnaire Thrive Questionnaire Date Thrive assessed: 02/08/24 ALLAN-7 AMB Questionnaire ALLAN-7 Date ALLAN - 7 assessed: 02/08/24 Source: Developed by Drs. Juan Phillips, Marleni Brown, Cabrera Martin and colleagues, with an educational ponce from [employer]. Physical exam (Primary Care) Tobacco/Smoking Status: Tobacco use Status Tobacco use date assessed 06/23/24 12/01/24 08:23 Patient Tobacco Use Status Current everyday Tobacco 12/01/24 08:23 e-Cigarette/Vaping Use Never Used 12/01/24 08:23 Thrive Assessment: Date of Thrive Assessment Date Thrive assessed 02/08/24 12/01/24 08:23 Telehealth Telehealth Telehealth Platform: [facility] Location of provider rendering services: practice address Location of patient: address on file Patient Identification confirmed using: Name, : Yes Telehealth method: video Patient verbally consented to treatment: Yes Patient verbally consented to billing insurance company: Yes Patient informed of any privacy concerns related to visit: Yes Minutes spent on Phone/Video with Pt.: 17 Coding Level of Care Code Tele Est Pt Level 4 (83458) Diagnoses Lipid disorder E78.9 Mood disorder F39 Hot flashes R23.2 Non-seasonal allergic rhinitis due to other allergic trigger J30.89 Allergic rhinitis trigger: other Allergic rhinitis seasonality: non-seasonal Vitamin D deficiency E55.9 Assessment & Plan Assessment & Plan (1) Lipid disorder: Code(s): E78.9 - Disorder of lipoprotein metabolism, unspecified Category: Medical (2) Mood disorder: Code(s): F39 - Unspecified mood [affective] disorder Category: Medical (3) Hot flashes: Code(s): R23.2 - [place] Category: Medical (4) Allergic rhinitis: Code(s): J30.9 - Allergic rhinitis, unspecified Category: Medical Qualifiers: Allergic rhinitis trigger: other Allergic rhinitis seasonality: non- seasonal Qualified Code(s): J30.89 - Other allergic rhinitis (5) Vitamin D deficiency: Code(s): E55.9 - Vitamin D deficiency, unspecified Category: Medical Plan History - The patient is a 49-year-old female presenting with vasomotor symptoms associated with menopause. - The patient reports that venlafaxine is no longer effective for her menopausal symptoms, particularly hot flashes. - She acknowledges awareness of alternative treatments, such as estrogen, but is concerned about potential risks, including increased cancer risk, and mandates consultation with a commercial lines manager. - Her last gynecological visit was a year ago, and she plans to consult a new commercial lines manager at [facility]. - The patient currently resides in [facility] and requires assistance to arrange an appointment at the [facility] facility. - Additional health issues include stable hyperlipidemia, for which she takes simvastatin 40 mg daily. - There are no current symptoms of anemia or inflammation based on her latest complete blood count, with stable kidney and good liver functions. Her low- density lipoprotein was not recently checked but had been stable previously. - Her recent labs indicated a deficiency in vitamin D, leading to an absence of current supplementation. - She reports joint pain primarily in her knees and hips, with a family history of osteoporosis. Deficiency of vitamin D and osteoarthritis were discussed as potential causes for her joint pain. - The management of joint pain was previously with ipzm-gdq-ivbecwb medication like Tylenol or Aleve. - Her allergies are effectively controlled with daily allergy pills. Problem List - Vasomotor symptoms associated with menopause - Vitamin D deficiency - Osteoarthritis - Hyperlipidemia - Allergic rhinitis Patient Instructions - Consider speaking with your commercial lines manager about hormone treatments for menopausal symptoms. - Take vitamin D supplements as advised; it might be covered by insurance or available [id number]. - For joint pain, use Tylenol or Aleve with food as needed. - Continue taking simvastatin 40 mg daily for hyperlipidemia. - Your next appointment with me is on February 20 at 3:30 PM. Orders: Referrals COMPLIANCE REVIEW SPECIALIST Referral R23.2 - [place] Medications: New cholecalciferol (vitamin D3) 25 mcg PO DAILY 90 days 90 caps 1RF Refilled simvastatin 40 mg PO DAILY 90 tabs 0RF
== END 2024-12-01 09:12 | disposition home or self-care (01) ==
LOC: HO.HMCC 07:53
PROVIDERS: PCP Internal Medicine; Visit Provider Internal Medicine
DX: E78.9 Disorder of lipoprotein metabolism, unspecified (principal); F39 Unspecified mood [affective] disorder; R23.2 Flushing; J30.89 Other allergic rhinitis; E55.9 Vitamin D deficiency, unspecified

== ENCOUNTER → 2024-12-01 07:53 | Outpatient (BNVA) | payer OTHER, SELFPAY | PROVIDERS: PCP Internal Medicine; Visit Provider Internal Medicine | DX: Z13.89 Encounter for screening for other disorder (principal) ==

== ENCOUNTER 2025-02-13 10:34 | Outpatient (REF) | payer OTHER, SELFPAY | END 2025-02-13 10:35 | disposition home or self-care (01) | LOC: HO.SH 10:34 | PROVIDERS: Visit Provider Internal Medicine | DX: Z01.118 Encounter for examination of ears and hearing with other abnormal findings (principal); H90.6 Mixed conductive and sensorineural hearing loss, bilateral | CPT/HCPCS: 92557; 92567 ==

== ENCOUNTER 2025-04-23 16:00 | Outpatient (REF) | payer OTHER, SELFPAY ==
--- NOTE | ~2025-04-23 | MM_ITS ---
EXAMINATION: MM SCREENING DIGITAL BREAST TOMOSYNTHESIS, BILATERAL CLINICAL INFORMATION: Screening. Asymptomatic. COMPARISON: Mammography: Comparison is made with available priors TECHNIQUE: Digital breast mammography with tomosynthesis is performed in both the craniocaudal and mediolateral oblique views along with computer-aided detection (CAD). FINDINGS: There are scattered areas of fibroglandular density. There are no significant masses, abnormal calcifications, or other abnormalities. MM/MM tomosynthesis screening BI IMPRESSION: No mammographic evidence of malignancy. ASSESSMENT: BI-RADS Category 1: Negative RECOMMENDATION: Routine annual mammography screening. 1 year F/U This examination should not preclude the clinical evaluation of a suspicious palpable abnormality. This patient's information was entered into a reminder system with a target due date for their next mammogram. Electronically signed by: Holly Byrnes DO 04/24/2025 12:59 PM EDT
== END 2025-04-23 16:01 | disposition home or self-care (01) ==
LOC: HO.MAMMO 16:00
PROVIDERS: PCP Internal Medicine; Visit Provider Internal Medicine
DX: Z12.31 Encounter for screening mammogram for malignant neoplasm of breast (principal)
CPT/HCPCS: 77063; 77067

== ENCOUNTER → 2025-04-23 16:15 | Outpatient (BNV) | payer OTHER, SELFPAY | PROVIDERS: PCP Internal Medicine; Visit Provider Internal Medicine | DX: Z12.31 Encounter for screening mammogram for malignant neoplasm of breast (principal) | CPT/HCPCS: 77063; 77067 ==

== ENCOUNTER 2025-07-04 15:26 | Outpatient (AMB) | payer OTHER, SELFPAY ==
[2025-07-04 15:30] VITALS: BP 122/74; PULSE 78; RESP 16; TEMP 36.8; O2SAT 98; BMI 36.4
--- NOTE | 2025-07-04 15:30 | A.OFFPC_ITS ---
Vital Signs 07/04/25 15:30 Height 5 ft 2 in Weight 199 lb BMI 36.4 BP 122/74 Blood Pressure Location Rt brachial Position Sitting Respiration 16 Pulse 78 Pulse Source Pulse Oximeter Temp 98.2 F Temp Source Oral Pulse Oximetry (%) 98 Oxygen Delivery Method Room Air Intake Visit Reasons: Annual PE Allergies oxycodone Allergy (Intermediate, Verified 07/04/25 15:33) Hives Medication List - Last Reconciled 07/04/25 by Abby Funes MD cholecalciferol (vitamin D3) 25 mcg PO DAILY 90 days estradiol (Vivelle-Dot) 1 patch transdermal 2XW loratadine 10 mg PO DAILY progesterone micronized 100 mg PO QAM simvastatin 40 mg PO DAILY venlafaxine ER 37.5 mg PO DAILY Tobacco use date assessed: 07/04/25 Dental Screening Dental Screen Date: 07/04/25 Did you have a dental visit in the last 12 months?: Yes Did you have a dental problem in the last 6 months where you did not have access to dental care?: No Was dental information given to patient?: Patient has dentist HPI HPI Comments History of Present Illness Details History of Present Illness The patient is a 49-year-old female presenting for a physical examination. Hyperlipidemia: - The patient has a history of a lipid d isorder and is taking simvastatin 40 mg. - Her last LDL was 101 one year ago. Mood stablizer: - The patient is prescribed venlafaxine 37.5 mg. the medication helps with irritability and prevents her from snapping. Tobacco Use Disorder: - The patient is a current smoker, consu bernice about 14-15 cigarettes per day. - She has a smoking history of approxima tely 30 years. - A pulmonary function test was ordered last year but was not completed. - She denies any shortness of breath on exertion. Menopausal and Postmenopausal Disorder: - The patient has experienced early mary pause and has been tested for it. - She was experiencing hot flashes, for which venlafaxine was not effective. - Her OBGYN has since prescribed an estr adiol patch and a progesterone pill, which have made her hot flashes very minimal. Right Foot Pain: - The patient reports new onset of pain on her right foot, specifically on the lateral aspect where there is a palpable bony prominence. - The area is tender to palpation. - She has no known history of injury to the foot. - She previously had constant pain, whic h is now less severe after switching to new shoes ([employer]). Preventative Care: - The patient had a mammogram in April of this year. - She declined a colonoscopy last year b ut has agreed to proceed with a Cologuard test for colon cancer screening. Medical History: - Lipid disorder - Anxiety and depression, currently sherin aleksandr as irritability/mood stabilization - Allergies - Vitamin D deficiency - Early menopause Social History: - Tobacco Use: The patient smokes approx imately 14-15 cigarettes per day and has been smoking for about 30 years. 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 Health Maintenance - Mammogram: Completed in April s year. - Colon Cancer Screening: She declined a colonoscopy last year but agreed to a Cologuard test during this visit. - Lung Cancer Screening: A pulmonary fun ction test was ordered last year but not completed; it will be re-ordered. - Gynecological care is managed by her O YN at [facility]. - She receives breast exams from her OBG YN. [place] [facility] - OBGYN at [facility]. Medications - Simvastatin 40 mg for lipid disorder - Venlafaxine 37.5 mg as a mood stabiliz er for irritability - Loratadine (prescription) for allergie s - Vitamin D supplement (prescription) - Estradiol patch for menopausal symptom s - Progesterone pill for menopausal sympt oms Employment - The patient works overnight shifts. PFSH Medical History Lipid disorder Migraine headache with aura Restless leg syndrome Surgical History No pertinent past surgical history Family History Paternal Grandmother Colon cancer Maternal Aunt Breast cancer Social History Housing: House Patient Tobacco Use Status: Current everyday Tobacco user Cigarette Packs Per Day: 0.5 Cigarettes Per Day: 10 e-Cigarette/Vaping Use: Never Used service: No Current occupational status: employed Current occupational exposures/hazards: No Cognitive needs: No Hearing needs: No Vision needs: No Female Reproductive History Menstrual Age of Menarche: 14 Questionnaire PHQ-9 Over the last 2 weeks, how often have you been bothered by any of the following problems? 1. Little interest or pleasure in doing things: not at all 2. Feeling down, depressed, or hopeless: not at all 3. Trouble falling or staying asleep, or sleeping too much: not at all 4. Feeling tired or having little energy: not at all 5. Poor appetite or overeating: not at all 6. Feeling bad about yourself - or that you are a failure or have let yourself or your family down: not at all 7. Trouble concentrating on things, such as reading the newspaper or watching television: not at all 8. Moving or speaking so slowly that other people could have noticed. Or the opposite - being so fidgety or restless that you have been moving around a lot more than usual: not at all 9. Thoughts that you would be better off or of hurting yourself in some way: not at all Total score: 0 Depression Screening Interpretation: Negative Depression Screening Done: Yes 28039 - PHQ-9 Billing: Yes Source: Developed by Drs. Juan Phillips, Cabrera Davila and colleagues, with an educational ponce from [employer]. Thrive Questionnaire Date Thrive assessed: 07/04/25 AUDIT C Alcohol Use Questionnaire (AUDIT-C) 1. How often do you have a drink containing alcohol?: Never Total Score: 0 Score Reviewed/Action Taken: Yes ALLAN-7 AMB Questionnaire ALLAN-7 Date ALLAN - 7 assessed: 02/08/24 Source: Developed by Drs. Juan Phillips, Cabrera Davila and colleagues, with an educational ponce from [employer]. Review of Systems Narrative Review of Systems - General: No fever no chills - Neurological: No headaches no dizziness - Ear nose throat: No sore throat no hearing difficulty no ear pain - Cardiovascular: No syncope, no chest pain, no palpitations - Gastrointestinal: No nausea vomiting or diarrhea - Endocrine: No polyuria polydipsia no heat intolerance - Genitourinary: No dysuria - Skin: No new complaints Physical exam (Primary Care) Vital Signs: Last Vital Signs Temp 98.2 F 07/04/25 15:30 Pulse 78 07/04/25 15:30 Resp 16 07/04/25 15:30 BP 122/74 07/04/25 15:30 Pulse Ox 98 07/04/25 15:30 Oxygen Delivery Method Room Air 07/04/25 15:30 BMI result Body Mass Index 36.4 Tobacco/Smoking Status: Tobacco use Status Tobacco use date assessed 07/04/25 07/04/25 15:38 Patient Tobacco Use Status Current everyday Tobacco 07/04/25 15:38 e-Cigarette/Vaping Use Never Used 07/04/25 15:38 Depression Screening Interpretation: Negative Thrive Assessment: Date of Thrive Assessment Date Thrive assessed 07/04/25 07/04/25 15:38 Narrative Diagnostic results - Labs (November of this year): CBC showed normal hemoglobin; electrolytes, creatinine (0.50), GFR (60), blood sugar, and liver enzymes were within normal limits. - Labs (1 year ago): LDL was 101. - Labs (prior): TSH was 1.15; Vitamin D was low. - Imaging: Mammogram was performed in April of this year. Physical Exam General: Cooperative, healthy appearing, comfortable, no acute distress Orientation: Patient oriented x3 Limitations: none Head: Normal to inspection Ears: Within normal limit visually Nose: Normal external nose present Face and sinus: Normal facial exam Eyes: Appearance normal, extraocular movement intact pupils reactive Neck: Normal visual inspection and supple Respiratory: Normal respiratory effort and able to speak in complete sentences. Clear to auscultation, no stridor Cardiovascular: S1 and S2 RRR GI: Normal to inspection. Soft to palpation and nontender Breast exam thru Obgyn Skin: Turgor normal, no acute findings Neuro: Patient oriented x3, motor sensory intact, balance intact, tendom with difficulty Extremities: Normal to inspection, right foot lateral aspect bone prominence noted, x-ray ordered . Coding Level of Care Code Est Pt Level 3 (24737) Est Pt Prev Care 40-64y(46723) Diagnoses Encounter for general adult medical examination with abnormal findings Z00.01 Foot pain, right M79.671 Heavy tobacco smoker >10 cigarettes per day F17.210 Mood disorder F39 Lipid disorder E78.9 Class 2 severe obesity due to excess calories with serious comorbidity and body mass index (BMI) of 37.0 to 37.9 in adult E66.01; Z68.37 Body mass index: BMI 37.0-37.9 Obesity classification: adult class 2 (BMI 35 - 39.9) Serious obesity comorbidity presence: with serious comorbidity Vitamin D deficiency E55.9 Additional Codes PHQ-9 - 68535 - PHQ-9 Billing: Yes ([id number]) Assessment & Plan Assessment & Plan (1) Encounter for general adult medical examination with abnormal findings: Code(s): Z00.01 - Encounter for general adult medical examination with abnormal findings Category: Medical (2) Foot pain, right: Code(s): M79.671 - Pain in right foot Category: Medical (3) Heavy tobacco smoker >10 cigarettes per day: Code(s): F17.210 - Nicotine dependence, cigarettes, uncomplicated Category: Social Hx (4) Mood disorder: Code(s): F39 - Unspecified mood [affective] disorder Category: Medical (5) Lipid disorder: Code(s): E78.9 - Disorder of lipoprotein metabolism, unspecified Category: Medical (6) Obesity due to excess calories: Code(s): E66.09 - Other obesity due to excess calories Category: Medical Qualifiers: Body mass index: BMI 37.0-37.9 Obesity classification: adult class 2 (BMI 35 - 39.9) Serious obesity comorbidity presence: with serious comorbidity Qualified Code(s): E66.01 - Morbid (severe) obesity due to excess calories; Z68.37 - Body mass index [BMI] 37.0-37.9, adult (7) Vitamin D deficiency: Code(s): E55.9 - Vitamin D deficiency, unspecified Category: Medical Plan Patient Instructions - You will receive a kit in the mail for a Cologuard test to screen for colon cancer. Please follow the directions in the kit and send it back. - The respiratory department will call you to schedule a pulmonary function test to check your lungs. Please return their call if they leave a message. - An order has been placed for an X-ray of your right foot. - An order has been placed for you to see a mri specialist (home appliances mechanic). - Please get blood work done to check your cholesterol. You will need to fast (not eat or drink anything except water) for 8-10 hours beforehand. - Continue taking your current medications as prescribed. - Practice walking in a straight line, heel-to-toe, at home to help improve your balance. - It is strongly recommended that you stop smoking. - Schedule a follow-up appointment in about four months to review your test results. Orders: Orders Complete Blood Count Auto Diff Today E55.9 - Vitamin D deficiency, unspecified, E66.01 - Morbid (severe) obesity due to excess calories, E78.9 - Disorder of lipoprotein metabolism, unspecified, F17.210 - Nicotine dependence, cigarettes, uncomplicated, F39 - Unspecified mood [affective] disorder, Z00.01 - Encounter for general adult medical examination with abnormal findings, Z68.37 - Body mass index [BMI] 37.0-37.9, adult Vitamin D 25-OH (D2 and D3) Today E55.9 - Vitamin D deficiency, unspecified, E66.01 - Morbid (severe) obesity due to excess calories, E78.9 - Disorder of lipoprotein metabolism, unspecified, F17.210 - Nicotine dependence, cigarettes, uncomplicated, F39 - Unspecified mood [affective] disorder, Z00.01 - Encounter for general adult medical examination with abnormal findings, Z68.37 - Body mass index [BMI] 37.0-37.9, adult XR foot RT 2V Today M79.671 - Pain in right foot PFT pulmonary function test Today F17.210 - Nicotine dependence, cigarettes, uncomplicated Comprehensive [place]. Panel Fast Today E55.9 - Vitamin D deficiency, unspecified, E66.01 - Morbid (severe) obesity due to excess calories, E78.9 - Disorder of lipoprotein metabolism, unspecified, F17.210 - Nicotine dependence, cigarettes, uncomplicated, F39 - Unspecified mood [affective] disorder, Z00.01 - Encounter for general adult medical examination with abnormal findings, Z68.37 - Body mass index [BMI] 37.0-37.9, adult Lipid Panel Today E55.9 - Vitamin D deficiency, unspecified, E66.01 - Morbid (severe) obesity due to excess calories, E78.9 - Disorder of lipoprotein metabolism, unspecified, F17.210 - Nicotine dependence, cigarettes, uncomplicated, F39 - Unspecified mood [affective] disorder, Z00.01 - Encounter for general adult medical examination with abnormal findings, Z68.37 - Body mass index [BMI] 37.0-37.9, adult Referrals Cologuard Test Z12.11 - Encounter for screening for malignant neoplasm of colon, Z12.12 - Encounter for screening for malignant neoplasm of rectum Podiatry Referral M79.671 - Pain in right foot
== END 2025-07-04 15:52 | disposition home or self-care (01) ==
LOC: HO.HMCC 15:26
PROVIDERS: Visit Provider Internal Medicine
DX: Z00.01 Encounter for general adult medical examination with abnormal findings (principal); E66.01 Morbid (severe) obesity due to excess calories; Z68.37 Body mass index [BMI] 37.0-37.9, adult; E55.9 Vitamin D deficiency, unspecified; M79.671 Pain in right foot; F17.210 Nicotine dependence, cigarettes, uncomplicated; E78.9 Disorder of lipoprotein metabolism, unspecified

== ENCOUNTER → 2025-07-04 15:26 | Outpatient (BNVA) | payer OTHER, SELFPAY | PROVIDERS: Visit Provider Internal Medicine | DX: Z00.01 Encounter for general adult medical examination with abnormal findings (principal); M79.671 Pain in right foot; F17.210 Nicotine dependence, cigarettes, uncomplicated; F39 Unspecified mood [affective] disorder; E78.9 Disorder of lipoprotein metabolism, unspecified; E66.01 Morbid (severe) obesity due to excess calories; Z68.37 Body mass index [BMI] 37.0-37.9, adult; E55.9 Vitamin D deficiency, unspecified; Z78.0 Asymptomatic menopausal state; Z13.31 Encounter for screening for depression | CPT/HCPCS: 96127 ==